=== PATIENT | female | born 1970 | race Caucasian/White ===

== ENCOUNTER → 2017-01-02 | Outpatient (CLI) | payer BC ==
--- OUTSIDE RECORDS SUMMARY | 2017-01-02 09:30 | XMS REPORT | Continuity of Care Document ---
Author Author [facility] Organization [facility] Address Unknown Phone Unavailable Allergies Medications Problems Date Dx Coded Attending Type Code Diagnosis Diagnosed By 11/01/2014 FLOWER PACE MD Ot V76.12 11/19/2014 FLOWER PACE MD Ot V76.12 11/26/2015 Ot V76.12 11/26/2015 FLOWER PACE MD Ot V76.12 11/26/2015 FLOWER PACE MD Ot V76.12 12/30/2016 Ot V76.12 OTH SCREEN MAMMO-MALIGN NEOPLASM OF ROSENDA 12/30/2016 FLOWER PACE MD Ot V76.12 OTH SCREEN MAMMO-MALIGN NEOPLASM OF ROSENDA 12/30/2016 FLOWER PACE MD Ot V76.12 OTH SCREEN MAMMO-MALIGN NEOPLASM OF ROSENDA 12/30/2016 FLOWER PACE MD Ot Z12.31 ENCNTR SCREEN MAMMOGRAM FOR MALIGNANT NE Procedures Results Encounters ACCT No. Visit Date/Time Discharge Status Pt. Type Provider Facility Loc./Unit Complaint [id number] 10/29/2014 10:08:00 2013 23:59:59 CLS Outpatient FLOWER PACE MD [facility] RAD SCREENING [id number] 10/22/2013 10:49:00 2012 23:59:59 CLS Outpatient FLOWER PACE MD [facility] RAD SCREENING [id number] 11/26/2015 10:04:00 ACT Outpatient FLOWER PACE MD [facility] RAD SCREENING [id number] 10/18/2012 14:25:00 Document Registration
--- NOTE | 2017-01-02 21:26 | Diagnostic Imaging Report ---
INDICATION: Screening. The current study was also evaluated with a Computer Aided Detection (CAD) system. Comparison made with prior examination of 11/26/2015, 10/29/2014, and 10/22/2013. FINDINGS: There is a moderate amount of residual fibroglandular tissue bilaterally. There is no dominant mass, spiculated lesion, or suspicious calcification identified. The skin, nipples, and axillae are unremarkable. IMPRESSION: Negative. ACR BI-RADS Category 1: Negative. Result letter will be mailed to the patient. Note: At least 10% of breast cancer is not imaged by mammography. Dictated by: Dictated on workstation # [id number]
== END ==
LOC: RAD 09:27
PROVIDERS: ATTEND Obstetrics & Gynecology
DX: Z12.31 Encounter for screening mammogram for malignant neoplasm of breast (principal)
CPT/HCPCS: 77067

== ENCOUNTER 2017-09-15 05:37 | Outpatient (CLI) | payer BC ==
[~2017-09-15] VITALS: Ht 172.7 cm; Wt 77.1 kg
== END 2017-09-15 11:24 ==
LOC: PREOP 05:37
PROVIDERS: ATTEND Internal Medicine
DX: Z01.818 Encounter for other preprocedural examination (principal); Z12.11 Encounter for screening for malignant neoplasm of colon; Z80.0 Family history of malignant neoplasm of digestive organs

== ENCOUNTER 2017-09-22 07:46 | Day surgery (SDC) | payer BC ==
--- NOTE | 2017-09-04 06:54 | HISTORY AND PHYSICAL ---
DATE OF SERVICE: DATE OF SERVICE: September 22, 2017 HISTORY OF PRESENT ILLNESS: The patient is a 47-year-old white female referred by Dr. Davis for her first screening colonoscopy. She is deemed to be of higher than average risk as she reports a maternal grandfather diagnosed with colon cancer in the 60s. She reports that she feels well and has had no bowel habit change. Denies melena or bright red blood per rectum. She denies abdominal pain. She does report nausea with general anesthetics. She has had 2 eye surgeries requiring general anesthetic followed by short episodes of nausea. Otherwise, she has no problems with nausea and denies heartburn, indigestion or dysphagia. PAST SURGICAL HISTORY: Pertinent only for 2 eye surgeries done as an outpatient. PAST MEDICAL HISTORY: She gets Depo-Provera injections for heavy painful uterine bleeding. They had resulted in amenorrhea and she has been much more comfortable. She reports no other medical problems. SOCIAL HISTORY: She is employed in the [employer] in [place] as I recall. She has no past smoking history with occasional social alcohol intake that is averaging several times per month. PHYSICAL EXAMINATION: GENERAL: Reveals a well appearing white female in no acute distress. HEENT: Oral cavity reveals a Mallampati class 2 configuration. Pharynx is clear. NECK: Reveals no JVD, adenopathy or bruits. CHEST: Clear. CARDIOVASCULAR: Reveals a regular rate and rhythm without murmur, S3 or S4. EXTREMITIES: Reveal no cyanosis, clubbing or edema. ABDOMEN: Reveals positive bowel sounds in all four quadrants. No mass, organomegaly or tenderness was noted. No bruits are appreciated. ASSESSMENT: The patient was set up for her first screening colonoscopy on 09/22/2017. Prep instructions of the Suprep Kit were given and questions were answered. In her evaluation in the office and review of her electronic medical record a little over 40 minutes, care time was spent by myself and another 15 minutes of office staff time going over specific prep instructions and scheduling colonoscopy. I thank you for the referral of this pleasant lady. Job ID: [id number] DocumentID: [id number] Dictated Date: 08/31/2017 17:17:36 Faith Doctor Date: 08/31/2017 18:00:59 Dictated By: MARISABEL HUSTON MD [facility]
[~2017-09-22] VITALS: Ht 172.7 cm; Wt 77.1 kg
--- OUTSIDE RECORDS SUMMARY | 2017-09-22 07:51 | XMS REPORT ---
Author Author Dottie Sanchez [facility] Address [address] [place], [place] [id number] Care Team Providers Care Quality Control Director Name Role Phone Dottie Sanchez PCP Unavailable Andrésscottmarce Fabiana PreferredProvider [phone] Allergies and Adverse Reactions Name Reaction Notes NO KNOWN DRUG ALLERGIES Plan of Treatment Planned Activity Comments Planned Date Planned Time Plan/Goal IM Injection 03/08/2016 12:00 AM IM Injection 06/06/2016 12:00 AM IM Injection 08/31/2016 12:00 AM Injection, Subcutaneous/IM 02/24/2017 12:00 AM Medications Active Name Start Date Estimated Completion Date SIG Comments Depo-Provera 150 mg/mL intramuscular suspension 01/04/2013 inject 1 milliliter (150 mg) by intramuscular route every 3 months for at least 6 months Name Start Date Expiration Date SIG Comments phentermine 37.5 mg oral tablet 01/04/2013 02/03/2013 take 1 tablet (37.5 mg) by oral route once daily before breakfast for 30 days phentermine 37.5 mg oral tablet 03/07/2016 04/06/2016 take 1 tablet (37.5 mg) by oral route once daily before breakfast for 30 days Discontinued Name Start Date Discontinued Date SIG Comments Sprintec (28) 0.25-35 mg-mcg oral tablet 01/04/2013 take 1 tablet by oral route once daily phentermine 37.5 mg oral tablet 01/14/2016 03/07/2016 take 1 tablet (37.5 mg) by oral route once daily before breakfast for 30 days Problem List Not available. Vital Signs Date Time BP-Sys(mm[Hg] BP-Bri(mm[Hg]) HR(bpm) RR(rpm) Temp WT HT HC BMI BSA BMI Percentile O2 Sat(%) 03/07/2016 1:55:00 PM 142 mmHg 90 mmHg 90 bpm 16 rpm 98.9 F 177.5 lbs 68 in 26.99 kg/m2 1.97 m2 98 % 01/14/2016 1:33:00 PM 126 mmHg 74 mmHg 68 bpm 18 rpm 97.5 F 179 lbs 68 in 27.2166 kg/m 1.9737 m 100 % 12/18/2015 8:27:00 AM 136 mmHg 74 mmHg 72 bpm 18 rpm 97.8 F 186.25 lbs 68 in 28.32 kg/m2 2.01 m2 100 % 01/04/2013 8:22:00 AM 126 mmHg 64 mmHg 64 bpm 18 rpm 98.9 F 168.125 lbs 68 in 25.5631 kg/m 1.9128 m 12/04/2012 8:17:00 AM 126 mmHg 64 mmHg 64 bpm 18 rpm 98.7 F 173 lbs 68 in 26.30 kg/m2 1.94 m2 02/14/2012 11:46:00 AM 132 mmHg 64 mmHg 66 bpm 18 rpm 98.6 F 170.125 lbs 01/13/2012 11:06:00 AM 128 mmHg 64 mmHg 68 bpm 18 rpm 98.7 F 179 lbs 68 in 27.22 kg/m2 1.97 m2 12/15/2011 2:21:00 PM 122 mmHg 64 mmHg 68 bpm 18 rpm 98.4 F 187.5 lbs 68.5 in 28.0943 kg/m 2.0274 m Social History Name Description Comments Exercises regularly Alcohol Use - Occasional Tobacco Never smoker Grown Children 2 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 with spouse 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 History of Procedures Date Ordered Description Order Status 10/02/2015 12:00 AM Depo Provera Injection, 150 mg Reviewed 12/18/2015 12:00 AM Depo Provera Injection, 150 mg Reviewed 12/18/2015 12:00 AM THER/PROPH/DIAG INJ SC/IM Reviewed 06/06/2016 12:00 AM Depo Provera Injection, 150 mg Reviewed 11/30/2016 12:00 AM THER/PROPH/DIAG INJ SC/IM Reviewed 11/30/2016 12:00 AM Depo Provera Injection, 150 mg Reviewed 12/04/2012 12:00 AM URINE TEST Reviewed 12/04/2012 12:00 AM THER/PROPH/DIAG INJ SC/IM Reviewed 12/04/2012 12:00 AM Depo-Provera 150 mg Reviewed 02/22/2013 12:00 AM THER/PROPH/DIAG INJ SC/IM Reviewed 02/22/2013 12:00 AM Depo-Provera 150 mg Reviewed 05/24/2013 12:00 AM THER/PROPH/DIAG INJ SC/IM Reviewed 05/24/2013 12:00 AM Depo-Provera 150 mg Reviewed 08/19/2013 12:00 AM THER/PROPH/DIAG INJ SC/IM Reviewed 08/19/2013 12:00 AM Depo-Provera 150 mg Reviewed 11/22/2013 12:00 AM THER/PROPH/DIAG INJ SC/IM Reviewed 11/22/2013 12:00 AM Depo-Provera 150 mg Reviewed 11/22/2013 12:00 AM URINE TEST Reviewed 02/07/2014 12:00 AM THER/PROPH/DIAG INJ SC/IM Reviewed 02/07/2014 12:00 AM Depo Provera, 150 mg Reviewed 05/08/2014 12:00 AM THER/PROPH/DIAG INJ SC/IM Reviewed 05/08/2014 12:00 AM Depo Provera Injection, 150 mg Reviewed 07/28/2014 12:00 AM THER/PROPH/DIAG INJ SC/IM Reviewed 07/28/2014 12:00 AM Depo Provera Injection, 150 mg Reviewed 10/21/2014 12:00 AM THER/PROPH/DIAG INJ SC/IM Reviewed 01/14/2015 12:00 AM THER/PROPH/DIAG INJ SC/IM Reviewed 01/14/2015 12:00 AM Depo Provera Injection, 150 mg Reviewed 04/14/2015 12:00 AM THER/PROPH/DIAG INJ SC/IM Reviewed 04/14/2015 12:00 AM Depo Provera Injection, 150 mg Reviewed 07/08/2015 12:00 AM Depo Provera Injection, 150 mg Reviewed Results Summary Not available. History Of Immunizations Not available. History of Past Illness Name Date of Onset Comments *No known medical problems Body Mass Index [BMI]; body mass index between 25-29, adult; body mass index 28.0-28.9, adult Dec 15 2011 2:23PM Exercise Counseling Dec 15 2011 2:23PM Dietary Counseling Dec 15 2011 2:23PM Body Mass Index [BMI]; body mass index between 25-29, adult; body mass index 27.0-27.9, adult Jan 13 2012 11:09AM Dietary Counseling Jan 13 2012 11:09AM Exercise Counseling Jan 13 2012 11:09AM Constipation Jan 13 2012 11:09AM Body Mass Index [BMI]; body mass index between 25-29, adult; body mass index 27.0-27.9, adult Feb 14 2012 11:48AM Dietary Counseling Feb 14 2012 11:48AM Exercise Counseling Feb 14 2012 11:48AM Dietary Counseling Dec 04 2012 8:20AM Exercise Counseling Dec 04 2012 8:20AM Contraceptive Counseling Dec 04 2012 8:20AM Overweight Jan 04 2013 8:25AM Contraceptive Counseling Jan 04 2013 8:25AM Contraceptive counseling (Depo-Provera) Feb 22 2013 11:56AM Contraceptive counseling (Depo-Provera) May 24 2013 10:28AM Contraceptive counseling (Depo-Provera) Oct 22 2013 4:27PM Contraceptive counseling (Depo-Provera) Nov 22 2013 11:54AM Contraceptive counseling (Depo-Provera) Feb 07 2014 12:53PM Contraceptive counseling (Depo-Provera) May 08 2014 2:30PM Contraceptive counseling (Depo-Provera) Jul 28 2014 1:20PM Contraceptive counseling (Depo-Provera) Oct 21 2014 3:51PM Contraception management Jan 14 2015 11:36AM Contraception management Apr 14 2015 11:44AM Contraceptive counseling (Depo-Provera) Jul 08 2015 12:04PM Contraceptive counseling (Depo-Provera) Oct 02 2015 11:26AM BMI 28.0-28.9,adult Dec 18 2015 8:31AM Encounter for surveillance of injectable contraceptive Dec 18 2015 8:31AM Encounter for surveillance of injectable contraceptive Jan 14 2016 1:35PM BMI 27.0-27.9,adult Jan 14 2016 1:35PM Contraceptive counseling (Depo-Provera) Mar 07 2016 2:55PM Overweight Mar 07 2016 1:59PM Encounter for surveillance of injectable contraceptive Mar 07 2016 1:59PM Contraceptive counseling (Depo-Provera) Jun 06 2016 11:34AM Contraceptive counseling (Depo-Provera) Aug 31 2016 1:50PM Encounter for surveillance of injectable contraceptive Nov 30 2016 11:35AM Encounter for surveillance of injectable contraceptive Feb 24 2017 12:09PM Payers Insurance Name Company Name Plan Name Plan Number Policy Number Policy Group Number Start Date BCBS [facility] [id number] Tuesday, 2014 [place] [employer] [place] [employer] [id number] Monday History of Encounters Visit Date Visit Type Provider 02/24/2017 Nurse visit Dottie Walker PSYCHOLOGY ASSISTANT 11/30/2016 Nurse visit Dottie Walker PSYCHOLOGY ASSISTANT 08/31/2016 Nurse visit Dottie Walker PSYCHOLOGY ASSISTANT 06/06/2016 Nurse visit Dottie Walker PSYCHOLOGY ASSISTANT 03/07/2016 Office visit Dottie Walker PSYCHOLOGY ASSISTANT 01/14/2016 Office visit Dottie Walker PSYCHOLOGY ASSISTANT 12/18/2015 Office visit Dottie Walker PSYCHOLOGY ASSISTANT 10/02/2015 Nurse visit Dottie Walker PSYCHOLOGY ASSISTANT 07/08/2015 Nurse visit Dottie Walker PSYCHOLOGY ASSISTANT 04/14/2015 Nurse visit Dottie Walker PSYCHOLOGY ASSISTANT 01/14/2015 Nurse visit Dottie Walker PSYCHOLOGY ASSISTANT 10/21/2014 Nurse visit Rhonda Parra PSYCHOLOGY ASSISTANT 07/28/2014 Nurse visit Dottie Sanchez PSYCHOLOGY ASSISTANT 05/08/2014 Nurse visit Alena Sanchez TERMITE CONTROL TECHNICIAN 02/07/2014 Nurse visit Dottie Daniel PSYCHOLOGY ASSISTANT 11/22/2013 Nurse visit Dottie Walker PSYCHOLOGY ASSISTANT 08/19/2013 Nurse visit Dottie Walker PSYCHOLOGY ASSISTANT 05/24/2013 Nurse visit Dottie Walker PSYCHOLOGY ASSISTANT 02/22/2013 Nurse visit Dottie Walker PSYCHOLOGY ASSISTANT 01/04/2013 Office visit Dottie Walker PSYCHOLOGY ASSISTANT 12/04/2012 Office visit Dottie Walker PSYCHOLOGY ASSISTANT 02/14/2012 Office visit Dottie Walker PSYCHOLOGY ASSISTANT 01/13/2012 Office visit Dottie Walker PSYCHOLOGY ASSISTANT 12/15/2011 Office visit Dottie Sanchez PSYCHOLOGY ASSISTANT
--- OUTSIDE RECORDS SUMMARY | 2017-09-22 07:51 | XMS REPORT ---
Author Author Dottie Sanchez [facility] Address [address] [place], [place] [id number] Care Team Providers Care Ball Thread Machine Tender Name Role Phone Dottie Sanchez PCP Unavailable Allergies and Adverse Reactions Name Reaction Notes NO KNOWN DRUG ALLERGIES Plan of Treatment Not available. Medications Active Name Start Date Estimated Completion [...] 1 tablet by oral route once daily Problem List Not available. Vital Signs Date Time BP-Sys(mm[Hg] BP-Bri(mm[Hg]) HR(bpm) RR(rpm) Temp WT HT HC BMI BSA BMI Percentile O2 Sat(%) 01/04/2013 8:22:00 AM 126 mmHg 64 mmHg 64 bpm 18 rpm 98.9 F 168.125 lbs 68 in 25.56 kg/m2 1.91 m2 12/04/2012 8:17:00 AM 126 mmHg 64 mmHg 64 bpm 18 rpm 98.7 F 173 lbs 68 in 26.3043 kg/m 1.9403 m 02/14/2012 11:46:00 AM 132 mmHg 64 mmHg 66 bpm 18 rpm 98.6 F 170.125 lbs 01/13/2012 11:06:00 AM 128 mmHg 64 mmHg 68 bpm 18 rpm 98.7 F 179 lbs 68 in 27.2166 kg/m 1.9737 m 12/15/2011 2:21:00 PM 122 mmHg 64 mmHg 68 bpm 18 rpm 98.4 F 187.5 lbs 68.5 in 28.09 kg/m2 2.03 m2 Social History Name Description Comments Exercises regularly Alcohol Use - Occasional Tobacco Never smoker Grown Children 2 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
--- OUTSIDE RECORDS SUMMARY | 2017-09-22 07:53 | XMS REPORT ---
Author Author Dottie Sanchez [facility] Address [address] [place], [place] [id number] Care Team Providers Care Cattle Manager Name Role Phone Dottie Sanchez PCP Unavailable Andrésscottmarce Fabiana PreferredProvider [phone] Allergies and Adverse Reactions Name Reaction Notes [...] Number Policy Group Number Start Date BCBS [facility] [id number] Tuesday, 2014 [employer] [employer] [employer] [id number] Monday History of Encounters Visit Date Visit Type Provider 02/24/2017 Nurse visit Dottie Walker ARCHITECT NAVAL 11/30/2016 Nurse visit Dottie Walker ARCHITECT NAVAL 08/31/2016 Nurse visit Dottie Walker ARCHITECT NAVAL 06/06/2016 Nurse visit Dottie Walker ARCHITECT NAVAL 03/07/2016 Office visit Dottie Walker ARCHITECT NAVAL 01/14/2016 Office visit Dottie Walker ARCHITECT NAVAL 12/18/2015 Office visit Dottie Walker ARCHITECT NAVAL 10/02/2015 Nurse visit Dottie Walker ARCHITECT NAVAL 07/08/2015 Nurse visit Dottie Walker ARCHITECT NAVAL 04/14/2015 Nurse visit Dottie Walker ARCHITECT NAVAL 01/14/2015 Nurse visit Dottie Walker ARCHITECT NAVAL 10/21/2014 Nurse visit Rhonda Parra ARCHITECT NAVAL 07/28/2014 Nurse visit Dottie Sanchez ARCHITECT NAVAL 05/08/2014 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
--- OUTSIDE RECORDS SUMMARY | 2017-09-22 07:55 | XMS REPORT ---
Author Author Dottie Sanchez [facility] Address [address] [place], [place] [phone] Care Team Providers Care Dairy Clerk Name Role Phone Dottie Sanchez PCP Unavailable Valentina Hardinerine PreferredProvider [phone] Allergies and Adverse Reactions Name Reaction Notes NO KNOWN DRUG ALLERGIES Plan of Treatment Planned Activity Comments Planned Date Planned Time Plan/Goal IM Injection 08/31/2016 12:00 AM Injection, Subcutaneous/IM 02/24/2017 12:00 AM Injection, Subcutaneous/IM 05/18/2017 12:00 AM Injection, Subcutaneous/IM 08/15/2017 12:00 AM Medications Active Name Start Date Estimated Completion Date SIG Comments Depo-Provera 150 mg/mL intramuscular suspension 01/04/2013 inject 1 milliliter (150 mg) by intramuscular route every 3 months for at least 6 months cyclobenzaprine 10 mg oral tablet 07/10/2017 1/2 TO 1 TAB AT BEDTIME FOR MUSCLE SPASMS Name Start Date Expiration Date SIG Comments [...] HC BMI BSA BMI Percentile O2 Sat(%) 07/10/2017 10:02:00 AM 138 mmHg 84 mmHg 80 bpm 18 rpm 97.8 F 179.5 lbs 68 in 27.29 kg/m2 1.98 m2 100 % 03/07/2016 1:55:00 PM 142 mmHg 90 mmHg 90 bpm 16 rpm 98.9 F 177.5 lbs 68 in 26.9885 kg/m 1.9654 m 98 % 01/14/2016 1:33:00 PM 126 mmHg 74 mmHg 68 bpm 18 rpm 97.5 F 179 lbs 68 in 27.22 kg/m2 1.97 m2 100 % 12/18/2015 8:27:00 AM 136 mmHg 74 mmHg 72 bpm 18 rpm 97.8 F 186.25 lbs 68 in 28.3189 kg/m 2.0133 m 100 % 01/04/2013 8:22:00 AM 126 mmHg [...] Social History Name Description Comments Exercises regularly 3 to 4 times a week Alcohol Use - Occasional Tobacco Never smoker Grown Children 2 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 with spouse 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 History of Procedures Date Ordered Description Order Status 10/02/2015 12:00 AM Depo Provera Injection, 150 mg Reviewed 12/18/2015 12:00 AM Depo Provera Injection, 150 mg Reviewed 12/18/2015 12:00 AM THER/PROPH/DIAG INJ SC/IM Reviewed 03/07/2016 12:00 AM Depo Provera Injection, 150 mg Reviewed 03/08/2016 12:00 AM Depo Provera Injection, 150 mg Reviewed 03/08/2016 12:00 AM THER/PROPH/DIAG INJ SC/IM Reviewed 06/06/2016 12:00 AM Depo Provera Injection, 150 mg Reviewed 06/06/2016 12:00 AM THER/PROPH/DIAG INJ SC/IM Reviewed 11/30/2016 12:00 AM THER/PROPH/DIAG INJ SC/IM Reviewed 11/30/2016 12:00 AM Depo Provera Injection, 150 mg Reviewed 07/10/2017 12:00 AM X-RAY EXAM NECK SPINE 2-3 VW Reviewed 12/04/2012 12:00 AM URINE TEST Reviewed [...] 10/21/2014 12:00 AM THER/PROPH/DIAG INJ SC/IM Reviewed 10/21/2014 12:00 AM Depo Provera Injection, 150 mg Reviewed 01/14/2015 12:00 AM THER/PROPH/DIAG INJ SC/IM [...] of injectable contraceptive Feb 24 2017 12:09PM Encounter for surveillance of injectable contraceptive May 18 2017 4:20PM Neck pain on left side Jul 10 2017 10:04AM Radiculopathy of arm Jul 10 2017 10:04AM Muscle spasm Jul 10 2017 10:04AM Encounter for surveillance of injectable contraceptive Aug 15 2017 4:18PM Payers Insurance Name Company Name Plan Name Plan Number Policy Number Policy Group Number Start Date BCBS [facility] [id number] Tuesday, 2014 [place] [employer] [id number] Monday History of Encounters Visit Date Visit Type Provider 08/15/2017 Nurse visit Dottie Sanchez PAPER CUP HANDLE MACHINE OPERATOR 07/10/2017 Office visit Valentina Hardin PAPER CUP HANDLE MACHINE OPERATOR 05/18/2017 Nurse visit Dottie Sanchez PAPER CUP HANDLE MACHINE OPERATOR 02/24/2017 Nurse visit Dottie Sanchez PAPER CUP HANDLE MACHINE OPERATOR 11/30/2016 Nurse visit Dottie Sanchez PAPER CUP HANDLE MACHINE OPERATOR 08/31/2016 Nurse visit Dottie Sanchez PAPER CUP HANDLE MACHINE OPERATOR 06/06/2016 Nurse visit Dottie Sanchez PAPER CUP HANDLE MACHINE OPERATOR 03/07/2016 Office visit Dottie Sanchez PAPER CUP HANDLE MACHINE OPERATOR 01/14/2016 Office visit Dottie Sanchez PAPER CUP HANDLE MACHINE OPERATOR 12/18/2015 Office visit Dottie Sanchez PAPER CUP HANDLE MACHINE OPERATOR 10/02/2015 Nurse visit Dottie Sanchez PAPER CUP HANDLE MACHINE OPERATOR 07/08/2015 Nurse visit Dottie Sanchez PAPER CUP HANDLE MACHINE OPERATOR 04/14/2015 Nurse visit Dottie Sanchez PAPER CUP HANDLE MACHINE OPERATOR 01/14/2015 Nurse visit Dottie Sanchez PAPER CUP HANDLE MACHINE OPERATOR 10/21/2014 Nurse visit Rhonda Parra PAPER CUP HANDLE MACHINE OPERATOR 07/28/2014 Nurse visit Dottie Sanchez PAPER CUP HANDLE MACHINE OPERATOR 05/08/2014 Nurse visit Alena Sanchez LMFT 02/07/2014 Nurse visit Dottie Sanchez PAPER CUP HANDLE MACHINE OPERATOR 11/22/2013 Nurse visit Dottie Sanchez PAPER CUP HANDLE MACHINE OPERATOR 08/19/2013 Nurse visit Dottie Sanchez PAPER CUP HANDLE MACHINE OPERATOR 05/24/2013 Nurse visit Dottie Sanchez PAPER CUP HANDLE MACHINE OPERATOR 02/22/2013 Nurse visit Dottie Sanchez PAPER CUP HANDLE MACHINE OPERATOR 01/04/2013 Office visit Dottie Sanchez PAPER CUP HANDLE MACHINE OPERATOR 12/04/2012 Office visit Dottie Sanchez PAPER CUP HANDLE MACHINE OPERATOR 02/14/2012 Office visit Dottie Sanchez PAPER CUP HANDLE MACHINE OPERATOR 01/13/2012 Office visit Dottie Sanchez PAPER CUP HANDLE MACHINE OPERATOR 12/15/2011 Office visit Dottie Sanchez PAPER CUP HANDLE MACHINE OPERATOR
--- OUTSIDE RECORDS SUMMARY | 2017-09-22 07:55 | XMS REPORT ---
Author Author Dottie Sanchez [facility] Address [address] [place], [place] [id number] Care Team Providers Care Power Line Lineman Name Role Phone Dottie Sanchez PCP Unavailable Allergies and Adverse Reactions Name Reaction Notes NO KNOWN DRUG ALLERGIES Plan of Treatment Not available. Medications Active Name Start Date Estimated Completion Date SIG Comments Depo-Provera 150 mg/mL intramuscular suspension 01/04/2013 inject 1 milliliter (150 mg) by intramuscular route every 3 months for at least 6 months phentermine 37.5 mg oral tablet 03/07/2016 04/06/2016 take 1 tablet (37.5 mg) by oral route once daily before breakfast for 30 days Name Start Date Expiration Date SIG Comments [...] 12/18/2015 12:00 AM THER/PROPH/DIAG INJ SC/IM Reviewed 12/04/2012 12:00 AM URINE TEST Reviewed [...] Contraceptive counseling (Depo-Provera) Mar 07 2016 2:55PM Payers Insurance Name Company Name Plan Name Plan Number Policy Number Policy Group Number Start Date BCBS [employer] [place] [id number] Tuesday, 2014 [employer] [id number] Monday History of Encounters Visit Date Visit Type Provider 03/07/2016 Office visit Dottie Sanchez BROWN SOURER 01/14/2016 Office visit Dottie Sanchez BROWN SOURER 12/18/2015 Office visit Dottie Sanchez BROWN SOURER 10/02/2015 Nurse visit Dottie Sanchez BROWN SOURER 07/08/2015 Nurse visit Dottie Sanchez BROWN SOURER 04/14/2015 Nurse visit Dottie Sanchez BROWN SOURER 01/14/2015 Nurse visit Dottie Sanchez BROWN SOURER 10/21/2014 Nurse visit Rhonda Parra BROWN SOURER 07/28/2014 Nurse visit Dottie Sanchez BROWN SOURER 05/08/2014 Nurse visit Alena Sanchez LOCATOR SPECIALIST 02/07/2014 Nurse visit Dottie Sanchez BROWN SOURER 11/22/2013 Nurse visit Dottie Sanchez BROWN SOURER 08/19/2013 Nurse visit Dottie Sanchez BROWN SOURER 05/24/2013 Nurse visit Dottie Sanchez BROWN SOURER 02/22/2013 Nurse visit oDttie Sanchez BROWN SOURER 01/04/2013 Office visit Dottie Sanchez BROWN SOURER 12/04/2012 Office visit Dottie Sanchez APRN 02/14/2012 Office visit Dottie Sanchez APRN 01/13/2012 Office visit Dottie Sanchez APRN 12/15/2011 Office visit Dottie Sanchez APRN
--- OUTSIDE RECORDS SUMMARY | 2017-09-22 07:56 | XMS REPORT ---
Author Author Valentina Hardin [facility] Address [address] [place], [place] [id number] Care Team Providers Care Hot Car Charger Name Role Phone Valentina Hardin PCP [phone] Valentina Hardin PreferredProvider [phone] Allergies and Adverse Reactions Name Reaction Notes NO KNOWN DRUG ALLERGIES Plan of Treatment Planned Activity Comments Planned Date Planned Time Plan/Goal IM Injection 08/31/2016 12:00 AM Injection, Subcutaneous/IM 02/24/2017 12:00 AM Injection, Subcutaneous/IM 05/18/2017 12:00 AM XR cervical spine, 2-3 views 07/10/2017 12:00 AM Medications Active Name Start Date [...] 10:04AM Muscle spasm Jul 10 2017 10:04AM Payers Insurance Name Company Name Plan Name Plan Number Policy Number Policy Group Number Start Date BCBS Bcbs [facility] [id number] Tuesday, 2014 [employer] [id number] Monday History of Encounters Visit Date Visit Type Provider 07/10/2017 Office visit Valentina Hardin SALES COACH 05/18/2017 Nurse visit Dottie Sanchez SALES COACH 02/24/2017 Nurse visit Dottie Sanchez SALES COACH 11/30/2016 Nurse visit Dottie Sanchez SALES COACH 08/31/2016 Nurse visit Dottie Sanchez SALES COACH 06/06/2016 Nurse visit Dottie Sanchez SALES COACH 03/07/2016 Office visit Dottie Sanchez SALES COACH 01/14/2016 Office visit Dottie Sanchez SALES COACH 12/18/2015 Office visit Dottie Sanchez SALES COACH 10/02/2015 Nurse visit Dottie Sanchez SALES COACH 07/08/2015 Nurse visit Dottie Sanchez SALES COACH 04/14/2015 Nurse visit Dottie Sanchez SALES COACH 01/14/2015 Nurse visit Dottie Sanchez SALES COACH 10/21/2014 Nurse visit Rhonda Parra SALES COACH 07/28/2014 Nurse visit Dottie Sanchez SALES COACH 05/08/2014 Nurse visit Alena Sanchez DIRECTOR FRAUD 02/07/2014 Nurse visit Dottie Sanchez SALES COACH 11/22/2013 Nurse visit Dottie Sanchez SALES COACH 08/19/2013 Nurse visit Dottie Sanchez SALES COACH 05/24/2013 Nurse visit Dottie Sanchez SALES COACH 02/22/2013 Nurse visit Dottie Sanchez SALES COACH 01/04/2013 Office visit Dottie Sanchez APRN 12/04/2012 Office visit Dottie Sanchez APRN 02/14/2012 Office visit Dottie Sanchez APRN 01/13/2012 Office visit Dottie Sanchez APRN 12/15/2011 Office visit Dottie Sanchez APRN
--- OUTSIDE RECORDS SUMMARY | 2017-09-22 08:00 | XMS REPORT ---
Author Author Dottie Sanchez [facility] Address [address] [place], [place] [phone] Care Team Providers Care Curriculum Designer Name Role Phone Dottie Sanchez PCP Unavailable Allergies and Adverse Reactions Name Reaction Notes NO KNOWN DRUG ALLERGIES Plan of Treatment Not available. Medications Active Name Start Date Estimated Completion Date SIG Comments Depo-Provera Intramuscular Suspension 150 mg/mL 01/04/2013 inject 1 milliliter (150 mg) by intramuscular route every 3 months for at least 6 months Name Start Date Expiration Date SIG Comments phentermine Oral tablet 37.5 mg 01/04/2013 02/03/2013 take 1 tablet (37.5 mg) by oral route once daily before breakfast for 30 days Discontinued Name Start Date Discontinued Date SIG Comments Sprintec (28) Oral tablet 0.25-35 mg-mcg 01/04/2013 take 1 tablet by oral route [...] 12/04/2012 12:00 AM THER/PROPH/DIAG INJ SC/IM Reviewed 02/22/2013 12:00 AM THER/PROPH/DIAG INJ SC/IM Reviewed 05/24/2013 12:00 AM THER/PROPH/DIAG INJ SC/IM Reviewed 08/19/2013 12:00 AM THER/PROPH/DIAG INJ SC/IM Reviewed 11/22/2013 12:00 AM THER/PROPH/DIAG INJ SC/IM Reviewed 11/22/2013 12:00 AM URINE TEST Reviewed 02/07/2014 12:00 AM THER/PROPH/DIAG INJ SC/IM Reviewed 05/08/2014 12:00 AM THER/PROPH/DIAG INJ SC/IM Reviewed 07/28/2014 12:00 AM THER/PROPH/DIAG INJ SC/IM Reviewed 10/21/2014 12:00 AM THER/PROPH/DIAG INJ SC/IM Reviewed 01/14/2015 12:00 AM THER/PROPH/DIAG INJ SC/IM Reviewed 04/14/2015 12:00 AM THER/PROPH/DIAG INJ SC/IM Reviewed Results Summary Not available. History Of [...] 11:36AM Contraception management Apr 14 2015 11:44AM Payers Insurance Name Company Name Plan Name Plan Number Policy Number Policy Group Number Start Date Bcbs Bcbs [facility] [id number] Tuesday, 2014 [employer] [id number] Monday History of Encounters Visit Date Visit Type Provider 04/14/2015 Nurse visit Dottie Sanchez MANAGER CUSTOMS 01/14/2015 Nurse visit Dottie Sanchez MANAGER CUSTOMS 10/21/2014 Nurse visit Rhonda Parra MANAGER CUSTOMS 07/28/2014 Nurse visit Dottie Sanchez MANAGER CUSTOMS 05/08/2014 Nurse visit Alena Sanchez WINDOWS SYSTEMS ENGINEER 02/07/2014 Nurse visit Dottie Sanchez MANAGER CUSTOMS 11/22/2013 Nurse visit Dottie Sanchez MANAGER CUSTOMS 08/19/2013 Nurse visit Dottie Sanchez MANAGER CUSTOMS 05/24/2013 Nurse visit Dottie Sanchez MANAGER CUSTOMS 02/22/2013 Nurse visit Dottie Sanchez MANAGER CUSTOMS 01/04/2013 Office visit Dottie Sanchez MANAGER CUSTOMS 12/04/2012 Office visit Dottie Sanchez MANAGER CUSTOMS 02/14/2012 Office visit Dottie Sanchez MANAGER CUSTOMS 01/13/2012 Office visit Dottie Sanchez MANAGER CUSTOMS 12/15/2011 Office visit Dottie Sanchez MANAGER CUSTOMS
[2017-09-22 08:05] VITALS: BP 145/98
--- OUTSIDE RECORDS SUMMARY | 2017-09-22 08:05 | XMS REPORT ---
Author Author Dottie Sanchez [facility] Address [address] [place], [place] [phone] Care Team Providers Care Edger Feeder Name Role Phone Dottie Sanchez PCP Unavailable [...] Contraceptive counseling (Depo-Provera) Oct 02 2015 11:26AM Payers Insurance Name Company Name Plan Name Plan Number Policy Number Policy Group Number [id number] [facility], 2014 [facility] [place] [employer] [id number] Monday History of Encounters Visit Date Visit Type Provider 10/02/2015 Nurse visit Dottie Sanchez APPLIANCE REPAIR TECHNICIAN 07/08/2015 Nurse visit Dottie Sanchez APPLIANCE REPAIR TECHNICIAN 04/14/2015 Nurse visit Dottie Sanchez APPLIANCE REPAIR TECHNICIAN 01/14/2015 Nurse visit Dottie Sanchez APPLIANCE REPAIR TECHNICIAN 10/21/2014 Nurse visit Rhonda Parra APPLIANCE REPAIR TECHNICIAN 07/28/2014 Nurse visit Dottie Sanchez APPLIANCE REPAIR TECHNICIAN 05/08/2014 Nurse visit Alena Sanchez WOOL HANKER 02/07/2014 Nurse visit Dottie Sanchez APPLIANCE REPAIR TECHNICIAN 11/22/2013 Nurse visit Dottie Sanchez APPLIANCE REPAIR TECHNICIAN 08/19/2013 Nurse visit Dottie Sanchez APPLIANCE REPAIR TECHNICIAN 05/24/2013 Nurse visit Dottie Sanchez APPLIANCE REPAIR TECHNICIAN 02/22/2013 Nurse visit Dottie Sanchez APPLIANCE REPAIR TECHNICIAN 01/04/2013 Office visit Dottie Sanchez APPLIANCE REPAIR TECHNICIAN 12/04/2012 Office visit Dottie Sanchez APPLIANCE REPAIR TECHNICIAN 02/14/2012 Office visit Dottie Sanchez APPLIANCE REPAIR TECHNICIAN 01/13/2012 Office visit Dottie Sanchez APPLIANCE REPAIR TECHNICIAN 12/15/2011 Office visit Dottie Sanchez APPLIANCE REPAIR TECHNICIAN
--- OUTSIDE RECORDS SUMMARY | 2017-09-22 08:05 | XMS REPORT ---
Author Dottie Reid [facility] Address [address] [place], [place] [phone] Care Team Providers Care Video Recorder Mechanic Name Role Phone Dottie Sanchez PCP Unavailable Allergies and Adverse Reactions Name Reaction Notes NO KNOWN DRUG ALLERGIES Plan of Treatment Planned Activity Comments Planned Date Planned Time Plan/Goal THER/PROPH/DIAG INJ SC/IM 03/08/2016 12:00 AM THER/PROPH/DIAG INJ SC/IM 06/06/2016 12:00 AM Medications Active Name Start Date [...] Contraceptive counseling (Depo-Provera) Jun 06 2016 11:34AM Payers Insurance Name Company Name Plan Name Plan Number Policy Number Policy Group Number Start Date BCBS Bcbs [facility] [id number] Tuesday, 2014 [employer] [facility] [employer] [id number] Monday History of Encounters Visit Date Visit Type Provider 06/06/2016 Nurse visit Dottie Sanchez RESEARCH HYDROLOGIST 03/07/2016 Office visit Dottie Sanchez RESEARCH HYDROLOGIST 01/14/2016 Office visit Dottie Sanchez RESEARCH HYDROLOGIST 12/18/2015 Office visit Dottie Sanchez RESEARCH HYDROLOGIST 10/02/2015 Nurse visit Dottie Sanchez RESEARCH HYDROLOGIST 07/08/2015 Nurse visit Dottie Sanchez RESEARCH HYDROLOGIST 04/14/2015 Nurse visit Dottie Sanchez RESEARCH HYDROLOGIST 01/14/2015 Nurse visit Dottie Sanchez RESEARCH HYDROLOGIST 10/21/2014 Nurse visit Rhonda Parra RESEARCH HYDROLOGIST 07/28/2014 Nurse visit Dottie Sanchez RESEARCH HYDROLOGIST 05/08/2014 Nurse visit Alena Sanchez CRYSTAL ATTACHER 02/07/2014 Nurse visit Dottie Sanchez RESEARCH HYDROLOGIST 11/22/2013 Nurse visit Dottie Sanchez RESEARCH HYDROLOGIST 08/19/2013 Nurse visit Dottie Sanchez RESEARCH HYDROLOGIST 05/24/2013 Nurse visit Dottie Sanchez RESEARCH HYDROLOGIST 02/22/2013 Nurse visit Dottie Sanchez RESEARCH HYDROLOGIST 01/04/2013 Office visit Dottie Sanchez RESEARCH HYDROLOGIST 12/04/2012 Office visit Dottie Sanchez RESEARCH HYDROLOGIST 02/14/2012 Office visit Dottie Sanchez RESEARCH HYDROLOGIST 01/13/2012 Office visit Dottie Sanchez RESEARCH HYDROLOGIST 12/15/2011 Office visit Dottie Sanchez RESEARCH HYDROLOGIST
--- OUTSIDE RECORDS SUMMARY | 2017-09-22 08:05 | XMS REPORT ---
Author Author Dotite Sanchez [facility] Address [address] [place], [place] [id number] Care Team Providers Care Enginehouse Brakeman Name Role Phone Dottie Sanchez PCP Unavailable Andrésscottmarce Fabiana PreferredProvider [phone] Allergies and Adverse Reactions Name Reaction Notes NO KNOWN DRUG ALLERGIES Plan of Treatment Planned Activity Comments Planned Date Planned Time Plan/Goal IM Injection 08/31/2016 12:00 AM Injection, Subcutaneous/IM 02/24/2017 12:00 AM Injection, Subcutaneous/IM 05/18/2017 12:00 AM Medications Active Name Start Date [...] 25-29, adult; body mass index 28.0-28.9, adult Feb 2 2012 2:23PM Exercise Counseling Dec 15 2011 2:23PM [...] of injectable contraceptive May 18 2017 4:20PM Payers Insurance Name Company Name Plan Name Plan Number Policy Number Policy Group Number Start Date BCBS [employer] [facility] [place] [id number] Tuesday, 2014 [employer] [id number] Monday History of Encounters Visit Date Visit Type Provider 05/18/2017 Nurse visit Dottie Sanchez LOAD BUILDER 02/24/2017 Nurse visit Dottie Sanchez LOAD BUILDER 11/30/2016 Nurse visit Dottie Sanchez LOAD BUILDER 08/31/2016 Nurse visit Dottie Sanchez LOAD BUILDER 06/06/2016 Nurse visit Dottie Sanchez LOAD BUILDER 03/07/2016 Office visit Dottie Sanchez LOAD BUILDER 01/14/2016 Office visit Dottie Sanchez LOAD BUILDER 12/18/2015 Office visit Dottie Sanchez LOAD BUILDER 10/02/2015 Nurse visit Dottie Sanchez LOAD BUILDER 07/08/2015 Nurse visit Dottie Sanchez LOAD BUILDER 04/14/2015 Nurse visit Dottie Sanchez LOAD BUILDER 01/14/2015 Nurse visit Dottie Sanchez LOAD BUILDER 10/21/2014 Nurse visit Rhonda Parra LOAD BUILDER 07/28/2014 Nurse visit Dottie Sanchez LOAD BUILDER 05/08/2014 Nurse visit Alena Sanchez PLAN EXAMINER 02/07/2014 Nurse visit Dottie Sanchez LOAD BUILDER 11/22/2013 Nurse visit Dottie Sanchez LOAD BUILDER 08/19/2013 Nurse visit Dottie Sanchez LOAD BUILDER 05/24/2013 Nurse visit Dottie Sanchez LOAD BUILDER 02/22/2013 Nurse visit Dottie Sanchez LOAD BUILDER 01/04/2013 Office visit Dottie Sanchez LOAD BUILDER 12/04/2012 Office visit Dottie Sanchez LOAD BUILDER 02/14/2012 Office visit Dottie Sanchez LOAD BUILDER 01/13/2012 Office visit Dottie Sanchez LOAD BUILDER 12/15/2011 Office visit Dottie Sanchez LOAD BUILDER
--- OUTSIDE RECORDS SUMMARY | 2017-09-22 08:06 | XMS REPORT ---
Author Dottie Reid [facility] Address [address] [place], [place] [address] Care Team Providers Care Equipment Service Technician Name Role Phone Dottie Sanchez PCP Unavailable Allergies and Adverse Reactions Name Reaction Notes NO KNOWN DRUG ALLERGIES Plan of Treatment Planned Activity Comments Planned Date Planned Time Plan/Goal THER/PROPH/DIAG INJ SC/IM 03/08/2016 12:00 AM THER/PROPH/DIAG INJ SC/IM 06/06/2016 12:00 AM THER/PROPH/DIAG INJ SC/IM 08/31/2016 12:00 AM Medications Active Name Start Date [...] Contraceptive counseling (Depo-Provera) Aug 31 2016 1:50PM Payers Insurance Name Company Name Plan Name Plan Number Policy Number Policy Group Number Start Date BCBS [facility] [id number] Tuesday, 2014 [facility] [employer] [id number] Monday History of Encounters Visit Date Visit Type Provider 08/31/2016 Nurse visit Dottie Sanchez CONTENT PUBLISHER 06/06/2016 Nurse visit Dottie Sanchez CONTENT PUBLISHER 03/07/2016 Office visit Dottie Sanchez CONTENT PUBLISHER 01/14/2016 Office visit Dottie Sanchez CONTENT PUBLISHER 12/18/2015 Office visit Dottie Sanchez CONTENT PUBLISHER 10/02/2015 Nurse visit Dottie Sanchez CONTENT PUBLISHER 07/08/2015 Nurse visit Dottie Walker CONTENT PUBLISHER 04/14/2015 Nurse visit Dottie Sanchez CONTENT PUBLISHER 01/14/2015 Nurse visit Dottie Sanchez CONTENT PUBLISHER 10/21/2014 Nurse visit Rhonda Parra CONTENT PUBLISHER 07/28/2014 Nurse visit Dottie Sanchez CONTENT PUBLISHER 05/08/2014 Nurse visit Alena Sanchez AIR INTERCEPT CONTROLLER SUPERVISOR 02/07/2014 Nurse visit Dottie Sanchez CONTENT PUBLISHER 11/22/2013 Nurse visit Dottie Sanchez CONTENT PUBLISHER 08/19/2013 Nurse visit Dottie Sanchez CONTENT PUBLISHER 05/24/2013 Nurse visit Dottie Sanchez CONTENT PUBLISHER 02/22/2013 Nurse visit Dottie Sanchez CONTENT PUBLISHER 01/04/2013 Office visit Dottie Sanchez CONTENT PUBLISHER 12/04/2012 Office visit Dottie Sanchez CONTENT PUBLISHER 02/14/2012 Office visit Dottie Sanchez CONTENT PUBLISHER 01/13/2012 Office visit Dottie Sanchez CONTENT PUBLISHER 12/15/2011 Office visit Dottie Sanchez CONTENT PUBLISHER
--- OUTSIDE RECORDS SUMMARY | 2017-09-22 08:06 | XMS REPORT ---
Author Author Dottie Sanchez [facility] Address [address] [place], [place] [phone] Care Team Providers Care Bulkhead Carpenter Name Role Phone Dottie Sanchez PCP Unavailable Andrésscottmarce Fabiana PreferredProvider [phone] Allergies and Adverse Reactions Name Reaction Notes [...] Group Number Start Date BCBS [employer] [place] [id number] Tuesday, 2014 [employer] [id number] Monday History of Encounters Visit Date Visit Type Provider 05/18/2017 Nurse visit Dottie Sanchez CHIP MIXER 02/24/2017 Nurse visit Dottie Sanchez CHIP MIXER 11/30/2016 Nurse visit Dottie Sanchez CHIP MIXER 08/31/2016 Nurse visit Dottie Sanchez CHIP MIXER 06/06/2016 Nurse visit Dottie Sanchez CHIP MIXER 03/07/2016 Office visit Dottie Sanchez CHIP MIXER 01/14/2016 Office visit Dottie Sanchez CHIP MIXER 12/18/2015 Office visit Dottie Sanchez CHIP MIXER 10/02/2015 Nurse visit Dottie Sanchez CHIP MIXER 07/08/2015 Nurse visit Dottie Sanchez CHIP MIXER 04/14/2015 Nurse visit Dottie Sanchez CHIP MIXER 01/14/2015 Nurse visit Dottie Sanchez CHIP MIXER 10/21/2014 Nurse visit Rhonda Parra CHIP MIXER 07/28/2014 Nurse visit Dottie Sanchez CHIP MIXER 05/08/2014 Nurse visit Alena Sanchez E/M ENGINEER 02/07/2014 Nurse visit Dottie Sanchez CHIP MIXER 11/22/2013 Nurse visit Dottie Sanchez CHIP MIXER 08/19/2013 Nurse visit Dottie Sanchez CHIP MIXER 05/24/2013 Nurse visit Dottie Sanchez CHIP MIXER 02/22/2013 Nurse visit Dottie Sanchez CHIP MIXER 01/04/2013 Office visit Dottie Sanchez CHIP MIXER 12/04/2012 Office visit Dottie Sanchez CHIP MIXER 02/14/2012 Office visit Dottie Sanchez CHIP MIXER 01/13/2012 Office visit Dottie Sanchez CHIP MIXER 12/15/2011 Office visit Dottie Sanchez CHIP MIXER
--- OUTSIDE RECORDS SUMMARY | 2017-09-22 08:07 | XMS REPORT ---
Author Dottie Reid [facility] Address [address] [place], [place] [id number] Care Team Providers Care Chief Recordist Name Role Phone Dottie Sanchez PCP Unavailable Allergies and Adverse Reactions Name Reaction Notes NO KNOWN DRUG ALLERGIES Plan of Treatment Planned Activity Comments Planned Date Planned Time Plan/Goal THER/PROPH/DIAG INJ SC/IM 03/08/2016 12:00 AM Medications Active Name Start Date [...] of injectable contraceptive Mar 07 2016 1:59PM Payers Insurance Name Company Name Plan Name Plan Number Policy Number Policy Group Number Start Date BCBS [facility] [id number] Tuesday, 2014 [facility] [id number] Monday History of Encounters Visit Date Visit Type Provider 03/07/2016 Office visit Dottie Sanchez MECHANICAL SHOVEL OPERATOR 01/14/2016 Office visit Dottie Sanchez MECHANICAL SHOVEL OPERATOR 12/18/2015 Office visit Dottie Sanchez MECHANICAL SHOVEL OPERATOR 10/02/2015 Nurse visit Dottie Sanchez MECHANICAL SHOVEL OPERATOR 07/08/2015 Nurse visit Dottie Sanchez MECHANICAL SHOVEL OPERATOR 04/14/2015 Nurse visit Dottie Sanchez MECHANICAL SHOVEL OPERATOR 01/14/2015 Nurse visit Dottie Sanchez MECHANICAL SHOVEL OPERATOR 10/21/2014 Nurse visit Rhonda Parra MECHANICAL SHOVEL OPERATOR 07/28/2014 Nurse visit Dottie Sanchez MECHANICAL SHOVEL OPERATOR 05/08/2014 Nurse visit Alena Sanchez FINISHER SCREWDOWN 02/07/2014 Nurse visit Dottie Sanchez MECHANICAL SHOVEL OPERATOR 11/22/2013 Nurse visit Dottie Sanchez MECHANICAL SHOVEL OPERATOR 08/19/2013 Nurse visit Dottie Sanchez MECHANICAL SHOVEL OPERATOR 05/24/2013 Nurse visit Dottie Sanchez MECHANICAL SHOVEL OPERATOR 02/22/2013 Nurse visit Dottie Sanchez MECHANICAL SHOVEL OPERATOR 01/04/2013 Office visit Dottie Sanchez MECHANICAL SHOVEL OPERATOR 12/04/2012 Office visit Dottie Sanchez MECHANICAL SHOVEL OPERATOR 02/14/2012 Office visit Dottie Sanchez MECHANICAL SHOVEL OPERATOR 01/13/2012 Office visit Dottie Sanchez MECHANICAL SHOVEL OPERATOR 12/15/2011 Office visit Dottie Sanchez MECHANICAL SHOVEL OPERATOR
--- OUTSIDE RECORDS SUMMARY | 2017-09-22 08:07 | XMS REPORT ---
Author Author Dottie Sanchez [facility] Address [address] [place], [place] [address] Care Team Providers Care Fresh Foods Technician Name Role Phone Dottie Sanchez PCP Unavailable Dottie Sanchez PreferredProvider Unavailable Allergies and Adverse Reactions Name Reaction Notes NO KNOWN DRUG ALLERGIES Plan of Treatment Planned Activity Comments Planned Date Planned Time Plan/Goal IM Injection 03/08/2016 12:00 AM IM Injection 06/06/2016 12:00 AM IM Injection 08/31/2016 12:00 AM Medications Active Name Start [...] of injectable contraceptive Nov 30 2016 11:35AM Payers Insurance Name Company Name Plan Name Plan Number Policy Number Policy Group Number Start Date BCBS [employer] [place] [id number] Tuesday, 2014 [employer] [id number] Monday History of Encounters Visit Date Visit Type Provider 11/30/2016 Nurse visit Dottie Sanchez ELECTRIC ORGAN ASSEMBLER 08/31/2016 Nurse visit Dottie Sanchez ELECTRIC ORGAN ASSEMBLER 06/06/2016 Nurse visit Dottie Walker ELECTRIC ORGAN ASSEMBLER 03/07/2016 Office visit Dottie Walker ELECTRIC ORGAN ASSEMBLER 01/14/2016 Office visit Dottie Walker ELECTRIC ORGAN ASSEMBLER 12/18/2015 Office visit Dottie Walker ELECTRIC ORGAN ASSEMBLER 10/02/2015 Nurse visit Dottie Walker ELECTRIC ORGAN ASSEMBLER 07/08/2015 Nurse visit Dottie Walker ELECTRIC ORGAN ASSEMBLER 04/14/2015 Nurse visit Dottie Walker ELECTRIC ORGAN ASSEMBLER 01/14/2015 Nurse visit Dottie Sanchez ELECTRIC ORGAN ASSEMBLER 10/21/2014 Nurse visit Rhonda Parra ELECTRIC ORGAN ASSEMBLER 07/28/2014 Nurse visit Dottie Sanchez ELECTRIC ORGAN ASSEMBLER 05/08/2014 Nurse visit Alena Sanchez SENIOR ANDROID SOFTWARE ENGINEER 02/07/2014 Nurse visit Dottie Walker ELECTRIC ORGAN ASSEMBLER 11/22/2013 Nurse visit Dottie Walker ELECTRIC ORGAN ASSEMBLER 08/19/2013 Nurse visit Dottie Sanchez ELECTRIC ORGAN ASSEMBLER 05/24/2013 Nurse visit Dottie Walker ELECTRIC ORGAN ASSEMBLER 02/22/2013 Nurse visit Dottie Sanchez ELECTRIC ORGAN ASSEMBLER 01/04/2013 Office visit Dottie Sanchez ELECTRIC ORGAN ASSEMBLER 12/04/2012 Office visit Dottie Sanchez ELECTRIC ORGAN ASSEMBLER 02/14/2012 Office visit Dottie Sanchez ELECTRIC ORGAN ASSEMBLER 01/13/2012 Office visit Dottie Sanchez ELECTRIC ORGAN ASSEMBLER 12/15/2011 Office visit Dottie Sanchez ELECTRIC ORGAN ASSEMBLER
[2017-09-22] MEDS ORDERED: 1/2 NS IV SOLUTION 1,000 ML IV ONE (08:08)
--- OUTSIDE RECORDS SUMMARY | 2017-09-22 08:08 | XMS REPORT ---
Author Author Dottie Sanchez [facility] Address [address] [place], [place] [id number] Care Team Providers Care Urban Forester Name Role Phone Dottie Sanchez PCP Unavailable Allergies and Adverse Reactions Name Reaction Notes NO KNOWN DRUG ALLERGIES Plan of Treatment Not available. Medications Active Name Start Date Estimated Completion Date SIG Comments Depo-Provera 150 mg/mL intramuscular suspension 01/04/2013 inject 1 milliliter (150 mg) by intramuscular route every 3 months for at least 6 months phentermine 37.5 mg oral tablet 01/14/2016 02/13/2016 take 1 tablet (37.5 mg) by oral [...] HC BMI BSA BMI Percentile O2 Sat(%) 01/14/2016 1:33:00 PM 126 mmHg 74 mmHg [...] 1:35PM BMI 27.0-27.9,adult Jan 14 2016 1:35PM Payers Insurance Name Company Name Plan Name Plan Number Policy Number Policy Group Number Start Date [employer] [place] [id number] Tuesday, 2014 [employer] [id number] Monday History of Encounters Visit Date Visit Type Provider 01/14/2016 Office visit Dottie Sanchez MALT HOUSE OPERATOR 12/18/2015 Office visit Dottie Sanchez MALT HOUSE OPERATOR 10/02/2015 Nurse visit Dottie Sanchez MALT HOUSE OPERATOR 07/08/2015 Nurse visit Dottie Sanchez MALT HOUSE OPERATOR 04/14/2015 Nurse visit Dottie Sanchez MALT HOUSE OPERATOR 01/14/2015 Nurse visit Dottie Sanchez MALT HOUSE OPERATOR 10/21/2014 Nurse visit Rhonda Parra MALT HOUSE OPERATOR 07/28/2014 Nurse visit Dottie Sanchez MALT HOUSE OPERATOR 05/08/2014 Nurse visit Alena Sanchez MOTOR BOSS 02/07/2014 Nurse visit Dottie Sanchez MALT HOUSE OPERATOR 11/22/2013 Nurse visit Dottie Sanchez MALT HOUSE OPERATOR 08/19/2013 Nurse visit Dottie Sanchez MALT HOUSE OPERATOR 05/24/2013 Nurse visit Dottie Sanchez MALT HOUSE OPERATOR 02/22/2013 Nurse visit Dottie Sanchez MALT HOUSE OPERATOR 01/04/2013 Office visit Dottie Sanchez MALT HOUSE OPERATOR 12/04/2012 Office visit Dottie Sanchez MALT HOUSE OPERATOR 02/14/2012 Office visit Dottie Sanchez MALT HOUSE OPERATOR 01/13/2012 Office visit Dottie Sanchez MALT HOUSE OPERATOR 12/15/2011 Office visit Dottie Sanchez MALT HOUSE OPERATOR
--- OUTSIDE RECORDS SUMMARY | 2017-09-22 08:10 | XMS REPORT ---
Author Author Dottie Sanchez [facility] Address [address] [place], [place] [id number] Care Team Providers Care Instrument Repair Specialist Name Role Phone Dottie Sanchez PCP Unavailable Valentina Hardinerine PreferredProvider [phone] Allergies and Adverse Reactions Name Reaction Notes [...] Policy Group Number Start Date [employer] [facility] [id number] Tuesday, 2014 [employer] [id number] Monday History of Encounters Visit Date Visit Type Provider 08/15/2017 Nurse visit Dottie Sanchez VARNISHING MACHINE OPERATOR 07/10/2017 Office visit Valentina Hardin VARNISHING MACHINE OPERATOR 05/18/2017 Nurse visit Dottie Sanchez VARNISHING MACHINE OPERATOR 02/24/2017 Nurse visit Dottie Sanchez VARNISHING MACHINE OPERATOR 11/30/2016 Nurse visit Dottie Sanchez VARNISHING MACHINE OPERATOR 08/31/2016 Nurse visit Dottie Sanchez VARNISHING MACHINE OPERATOR 06/06/2016 Nurse visit Dottie Sanchez VARNISHING MACHINE OPERATOR 03/07/2016 Office visit Dottie Sanchez VARNISHING MACHINE OPERATOR 01/14/2016 Office visit Dottie Sanchez VARNISHING MACHINE OPERATOR 12/18/2015 Office visit Dottie Sanchez VARNISHING MACHINE OPERATOR 10/02/2015 Nurse visit Dottie Sanchez VARNISHING MACHINE OPERATOR 07/08/2015 Nurse visit Dottie Sanchez VARNISHING MACHINE OPERATOR 04/14/2015 Nurse visit Dottie Sanchez VARNISHING MACHINE OPERATOR 01/14/2015 Nurse visit Dottie Sanchez VARNISHING MACHINE OPERATOR 10/21/2014 Nurse visit Rhonda Parra VARNISHING MACHINE OPERATOR 07/28/2014 Nurse visit Dottie Sanchez VARNISHING MACHINE OPERATOR 05/08/2014 Nurse visit Alena Sanchez MOLECULAR BIOLOGY SCIENTIST 02/07/2014 Nurse visit Dottie Sanchez VARNISHING MACHINE OPERATOR 11/22/2013 Nurse visit Dottie Sanchez VARNISHING MACHINE OPERATOR 08/19/2013 Nurse visit Dottie Sanchez VARNISHING MACHINE OPERATOR 05/24/2013 Nurse visit Dottie Sanchez VARNISHING MACHINE OPERATOR 02/22/2013 Nurse visit Dottie Sanchez VARNISHING MACHINE OPERATOR 01/04/2013 Office visit Dottie Sanchez VARNISHING MACHINE OPERATOR 12/04/2012 Office visit Dottie Sanchez VARNISHING MACHINE OPERATOR 02/14/2012 Office visit Dottie Sanchez VARNISHING MACHINE OPERATOR 01/13/2012 Office visit Dottie Sanchez VARNISHING MACHINE OPERATOR 12/15/2011 Office visit Dottie Sanchez VARNISHING MACHINE OPERATOR
--- OUTSIDE RECORDS SUMMARY | 2017-09-22 08:10 | XMS REPORT | Continuity of Care Document ---
Author Author [facility] Organization [facility] Address Unknown Phone Unavailable Allergies Medications Problems Date Dx Coded Attending Type Code Diagnosis Diagnosed By 11/01/2014 SANJEEV CARRASCO, FLOWER Rasmussen Ot V76.12 11/19/2014 FLOWER PACE MD Ot V76.12 11/26/2015 Ot V76.12 11/26/2015 FLOWER PACE MD Ot V76.12 11/26/2015 FLOWER PACE MD Ot V76.12 12/30/2016 Ot V76.12 OTH SCREEN MAMMO-MALIGN NEOPLASM OF ROSENDA 12/30/2016 FLOWER PACE MD Ot V76.12 OTH SCREEN MAMMO-MALIGN NEOPLASM OF ROSENDA 12/30/2016 FLOWER PACE MD Ot V76.12 OTH SCREEN MAMMO-MALIGN NEOPLASM OF ROSENDA 12/30/2016 FLOWER PACE MD, Ot Z12.31 ENCNTR SCREEN MAMMOGRAM FOR MALIGNANT NE 01/02/2017 Ot V76.12 OTH SCREEN MAMMO-MALIGN NEOPLASM OF ROSENDA 01/02/2017 FLOWER PACE MD Ot V76.12 OTH SCREEN MAMMO-MALIGN NEOPLASM OF ROSENDA 01/02/2017 FLOWER PACE MD Ot V76.12 OTH SCREEN MAMMO-MALIGN NEOPLASM OF ROSENDA 01/02/2017 FLOWER PACE MD, Ot Z12.31 ENCNTR SCREEN MAMMOGRAM FOR MALIGNANT NE 01/03/2017 FLOWER PACE MD, Ot Z12.31 ENCNTR SCREEN MAMMOGRAM FOR MALIGNANT NE 01/18/2017 FLOWER PACE MD, Ot Z12.31 ENCNTR SCREEN MAMMOGRAM FOR MALIGNANT NE Procedures Results Encounters ACCT No. Visit Date/Time Discharge Status Pt. Type Provider Facility Loc./Unit Complaint [id number] 01/02/2017 09:27:00 2016 23:59:59 CLS Outpatient FLOWER PACE MD [facility] RAD SCREENING [id number] 11/26/2015 10:04:00 2015 23:59:59 CLS Outpatient FLOWER PACE MD [facility] RAD SCREENING [id number] 10/29/2014 10:08:00 2013 23:59:59 CLS Outpatient FLOWER PACE MD [facility] RAD SCREENING [id number] 10/22/2013 10:49:00 2012 23:59:59 CLS Outpatient FLOWER PACE MD [facility] RAD SCREENING [id number] 09/22/2017 09:00:00 PEN Preadmit MARISABEL HUSTON MD [facility] ENDO SCREENING [id number] 10/18/2012 14:25:00 Document Registration [id number] 08/15/2017 17:10:58 08/15/2017 23: 59:59 CLS Outpatient Walker, Dottie [id number] 07/10/2017 10:59:01 07/10/2017 23: 59:59 CLS Outpatient Stephanie Hardin [id number] 05/18/2017 17:13:58 05/18/2017 23: 59:59 CLS Outpatient Walker, Dottie [id number] 02/24/2017 13:00:56 02/24/2017 23: 59:59 CLS Outpatient Walker, Dottie [id number] 11/30/2016 12:19:39 11/30/2016 23: 59:59 CLS Outpatient Walker, Dottie [id number] 08/31/2016 17:00:52 08/31/2016 23: 59:59 CLS Outpatient Walker, Dottie [id number] 06/06/2016 12:18:03 06/06/2016 23: 59:59 CLS Outpatient Walker, Dottie [id number] 01/14/2016 14:29:18 01/14/2016 23: 59:59 CLS Outpatient Walker, Dottie [id number] 12/18/2015 09:22:46 12/18/2015 23: 59:59 CLS Outpatient Walker, Dottie [id number] 10/02/2015 11:55:39 10/02/2015 23: 59:59 CLS Outpatient Walker, Dottie [id number] 07/08/2015 12:02:16 07/08/2015 23: 59:59 CLS Outpatient Walker, Dottie [id number] 06/22/2015 21:47:09 06/22/2015 23: 59:59 CLS Outpatient Walker, Dottie [id number] 10/21/2014 15:55:02 10/21/2014 23: 59:59 CLS Outpatient Rhonda Parra [id number] 07/28/2014 14:07:07 07/28/2014 23: 59:59 CLS Outpatient Walker, Dottie [id number] 02/07/2014 11:42:55 02/07/2014 23: 59:59 CLS Outpatient Walker, Dottie [id number] 11/22/2013 12:28:52 11/22/2013 23: 59:59 CLS Outpatient Walker, Dottie
[2017-09-22] MEDS ORDERED: LIDOCAINE JELLY 2% (XYLOCAINE) 5 ML TUBE MM PRN (08:15)
[2017-09-22] MEDS ORDERED: 1/2 NS IV SOLUTION 1,000 ML IV PRN (08:15)
[2017-09-22] MEDS ORDERED: MIDAZOLAM 2 MG/2 ML (VERSED) VIAL ONE ×2 (08:43)
[2017-09-22] MEDS ORDERED: fentaNYL INJECTION 100 MCG/2 ML AMP ONE (08:44)
[2017-09-22] MEDS ORDERED: LIDOCAINE JELLY 2% (XYLOCAINE) 5 ML TUBE ONE (08:44)
[2017-09-22] MEDS: fentaNYL INJECTION 100 MCG/2 ML AMP IVP PRN ×2 (09:05→09:15)
--- NOTE | 2017-09-22 09:09 | Pre-Op Note & Conscious Sedat ---
Pre-Operative Progress Note H&P Reviewed The H&P was reviewed, patient examined and no changes noted. Date H&P Reviewed: Sep 22, 2017 Time H&P Reviewed: 08:55 Conscious Sedation Pre-Proced ASA Class: 1 Airway Mallampati Classification: ([place] appropriate class) I. II. III, IV Lungs Heart ASA score ASA 1: a normal healthy patient ASA 2: a patient with a mild systemic disease (mid diabetes, controlled hypertension, obesity ASA 3: a patient with a severe systemic disease that limits activity (angina , COPD, prior Myocardial infarction) ASA 4: a patient with an incapacitating disease that is a constant threat to life (CHF, renal failure) ASA 5: a moribund patient not expected to survive 24 hrs. (ruptured aneurysm) ASA 6: a declared brain patient whose organs are being harvested. For emergent operations, add the letter E after the classification Grade 2 Sedation Plan: Analgesia, Amnesia, Plan communicated to team members, Discussed options with patient/fam, Discussed risks with patient/fam Note The patient is an appropriate candidate to undergo the planned procedure, sedation, and anesthesia. The patient immediately re-assessed prior to indication. MARISABEL HUSTON MD Sep 22, 2017 09:09
[2017-09-22] MEDS: MIDAZOLAM 2 MG/2 ML (VERSED) VIAL IVP PRN ×2 (09:10→09:27)
[2017-09-22 10:00] VITALS: BP 131/94
[2017-09-22 10:40] VITALS: BP 129/90
[2017-09-22 11:05] VITALS: BP 129/90
--- NOTE | 2017-09-22 22:21 | OPERATIVE REPORT ---
DATE OF SERVICE: COLONOSCOPY SUMMARY INDICATION FOR THE PROCEDURE: Screening colonoscopy. DESCRIPTION OF PROCEDURE: The patient was placed in the left lateral decubitus position. Prior to undergoing colonoscopy, digital rectal evaluation was performed. Anal sphincter tone was normal and the perianal reflex is intact. Digital evaluation of the rectum was compatible with a small anterior rectocele. No other abnormalities were noted on digital inspection of the anal canal or distal rectal vault. The colonoscope was then inserted into the rectum and under direct visualization advanced to the cecum. The cecum was identified by identification of the ileocecal valve and the cecal strap. Photographic documentation was obtained. Careful inspection was made as the colonoscope was removed. FINDINGS: Present in the distal rectum, was some subtle crinkling of the mucosa raising the possibility of a flat adenoma, biopsy was obtained and submitted for histopathology. The remainder of the rectum, sigmoid colon, descending colon and splenic flexure were unremarkable. Present in the mid transverse colon was a sessile 6 mm adenomatous-appearing polyp. It was photographed, biopsied, ablated and submitted for histopathology. The remainder of the transverse colon and hepatic flexure were unremarkable. Present in the proximal ascending colon was a diminutive sessile 3 x 8 mm polyp on the top of a haustral fold. It was photographed, biopsied, ablated and submitted for histopathology. No significant blood loss was noted. The cecum of the colon was unremarkable. A/P 1. Two diminutive adenomatous -appearing polyps were removed today, one from the transverse colon, the other one from the proximal ascending colon as noted above without blood loss via hot forceps. There were questionable subtle features raising the possibility of a flat adenoma in the rectum. A biopsy was obtained. As long as there is no evidence for neoplasia on this biopsy and no surprises on the polyps removed, would advocate consideration for repeat surveillance colonoscopy in 5 years. This also takes into consideration family history of second-degree relative diagnosed with colon cancer. Index case was her grandmother, believed to be in her 70s at the time of diagnosis. 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
== END 2017-09-22 11:35 | disposition home or self-care (01) ==
LOC: ENDO 07:46
PROVIDERS: ATTEND Internal Medicine
DX: Z12.11 Encounter for screening for malignant neoplasm of colon (principal); K63.5 Polyp of colon; Z80.0 Family history of malignant neoplasm of digestive organs
CPT/HCPCS: 84703

== ENCOUNTER 2017-09-24 17:50 | Emergency (ER) | payer BC ==
[~2017-09-24] VITALS: Ht 172.7 cm; Wt 77.1 kg
[2017-09-24] MEDS ORDERED: CYCL10TA9 (19:09)
[2017-09-24 19:15] LABS: BASOPHILS % (AUTO) 0 % (0-10); EOSINOPHILS # (AUTO) 0.1 10^3/uL (0.0-0.3); EOSINOPHILS % (AUTO) 1 % (0-10); LYMPHOCYTES % (AUTO) 10 % (12-44); MEAN CORPUSCULAR HEMOGLOBIN 31 PG (25-34); MEAN CORPUSCULAR HGB CONC 35 G/DL (32-36); MEAN CORPUSCULAR VOLUME 90 FL (80-99); MEAN PLATELET VOLUME 11.3 FL (7.4-10.4); MONOCYTES # (AUTO) 0.6 X 10^3 (0.0-1.0); MONOCYTES % (AUTO) 6 % (0-12); NEUTROPHILS # (AUTO) 8.2 X 10^3 (1.8-7.8); NEUTROPHILS % (AUTO) 83 % (42-75); PLATELET COUNT 232 10^3/uL (130-400); RED BLOOD COUNT 4.56 10^6/uL (4.35-5.85); RED CELL DISTRIBUTION WIDTH 12.6 % (10.0-14.5); WHITE BLOOD COUNT 9.9 10^3/uL (4.3-11.0)
[2017-09-24 20:02] VITALS: BP 133/92
--- NOTE | 2017-09-24 20:04 | ED GI ---
General Chief Complaint: Abdominal/GI Problems Stated Complaint: POST COLONOSCOPY/BLEEDING Nursing Triage Note: pt had colonoscopy on monday with dr ryan. polyp x 2 removed. normal bm yesterday. bm with large amount of bright red blood today. c/o abd discomfort. nausea with episode. Sepsis Screen: No Definite Risk Source of Information: Patient Exam Limitations: No Limitations History of Present Illness Time Seen By Provider: 18:48 Initial Comments This 47-year-old woman presents to the emergency room with concerns about a large amount of bright red blood per stool today. She has had some minor lower abdominal discomfort as well. She had some nausea and lightheadedness with the episode as well which has now resolved. She had a colonoscopy performed by Dr. Ryan on Monday. There were no complications. Three biopsies were performed according to the report on her chart including to polyp removals. Patient has recovered well until today. She denies any fever. She denies use of any blood thinning medications. Allergies and Home Medications Allergies Coded Allergies: No Known Drug Allergies (Unverified , 09/15/17) Home Medications Cyclobenzaprine HCl 10 Mg Tablet, (Reported) Review of Systems Constitutional: no symptoms reported EENTM: No Symptoms Reported Respiratory: No Symptoms Reported Cardiovascular: No Symptoms Reported Gastrointestinal: See HPI Genitourinary: No Symptoms Reported Musculoskeletal: no symptoms reported Skin: no symptoms reported Psychiatric/Neurological: No Symptoms Reported Endocrine: No Symptoms Reported Hematologic/Lymphatic: See HPI Past Bvtspnl-Zfktbo-Hkapnk Hx Patient Social History Alcohol Use: Occasionally Uses Recreational Drug Use: No Smoking Status: Never a Smoker Recent Foreign Travel: No Contact w/Someone Who Travel: No Recent Infectious Disease Expo: No Recent Hopitalizations: No Immunizations Up To Date Date of Influenza Vaccine: Sep 11, 2017 Seasonal Allergies Seasonal Allergies: Yes Surgeries History of Surgeries: Yes Surgeries: Abdominal (colonoscopy), Eye Surgery Respiratory History of Respiratory Disorde: No Cardiovascular History of Cardiac Disorders: No Neurological History of Neurological Disord: No Gastrointestinal History of Gastrointestinal Di: No Musculoskeletal History of Musculoskeletal Dis: No Endocrine History of Endocrine Disorders: No Cancer History of Cancer: No Psychosocial History of Psychiatric Problem: No Integumentary History of Skin or Integumenta: No Blood Transfusions History of Blood Disorders: No Physical Exam Vital Signs VS - Last 72 Hours, by Label 09/24/17 09/24/17 18:51 20:02 Temp 97.9 97.9 Pulse 85 95 Resp 16 16 B/P (MAP) 139/94 Pulse Ox 99 O2 Delivery Room Air Capillary Refill : Less Than 3 Seconds General Appearance: WD/WN, no apparent distress HEENT: normal ENT inspection Neck: normal inspection Respiratory: lungs clear, normal breath sounds, no respiratory distress, no accessory muscle use Cardiovascular: regular rate, rhythm, no edema, no murmur Gastrointestinal: normal bowel sounds, soft, tenderness (minimal lower abdominal discomfort) Rectal: other (no masses, external hemorrhoids versus skin tag, scant amount of dark reddish-brown blood with no active bleeding.) Extremities: normal inspection, no pedal edema 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, no motor/sensory deficits, alert, normal mood/affect, oriented x 3 Skin: normal color, warm/dry Progress/Results/Core Measures Results/Orders Lab Results Laboratory Tests Test 09/24/17 19:05 Range/Units White Blood Count 9.9 4.3-11.0 10^3/uL Red Blood Count 4.56 4.35-5.85 10^6/uL Hemoglobin 14.3 11.5-16.0 G/DL Hematocrit 41 35-52 % Mean Corpuscular Volume 90 80-99 FL Mean Corpuscular Hemoglobin 31 25-34 PG Mean Corpuscular Hemoglobin Concent 35 32-36 G/DL Red Cell Distribution Width 12.6 10.0-14.5 % Platelet Count 232 130-400 10^3/uL Mean Platelet Volume 11.3 H 7.4-10.4 FL Neutrophils (%) (Auto) 83 H 42-75 % Lymphocytes (%) (Auto) 10 L 12-44 % Monocytes (%) (Auto) 6 0-12 % Eosinophils (%) (Auto) 1 0-10 % Basophils (%) (Auto) 0 0-10 % Neutrophils # (Auto) 8.2 H 1.8-7.8 X 10^3 Lymphocytes # (Auto) 1.0 1.0-4.0 X 10^3 Monocytes # (Auto) 0.6 0.0-1.0 X 10^3 Eosinophils # (Auto) 0.1 0.0-0.3 10^3/uL Basophils # (Auto) 0.0 0.0-0.1 10^3/uL My Orders Orders - BRUEGGEMANN,JOSE T MD Cbc With Automated Diff (09/24/17 18:54) Saline Lock/Iv-Start (09/24/17 18:54) Vital Signs/I&O Vital Sign - Last 12Hours 09/24/17 09/24/17 18:51 20:02 Temp 97.9 97.9 Pulse 85 95 Resp 16 16 B/P (MAP) 139/94 Pulse Ox 99 O2 Delivery Room Air Blood Pressure Mean: 109 Progress Note : Progress Note Labs reviewed with patient. She was provided with reassurance and strict return precautions. She was invited to call back with any problems, questions, or concerns. Departure Impression Impression: Primary Impression: Rectal bleeding Disposition: HOME, SELF-CARE Condition: Improved Departure-Patient Inst. Decision time for Depature: 19:50 Referrals: NO,LOCAL PHYSICIAN (PCP) Primary Care Physician SHANIKA OLMSTEAD (Family) Primary Care Physician Patient Instructions: Colonoscopy Add. Discharge Instructions: Consume a only clear liquids until you discuss further with Dr. Ryan tomorrow. Take only Tylenol (acetaminophen) for pain. Do not take any aspirin or NSAID medication such as ibuprofen or naproxen. Return to the ER or call 911 if you develop worsening problems including worsening pain, recurrent bleeding, fever, persistent lightheadedness or shortness of breath, etc. All discharge instructions reviewed with patient and/or family. Voiced understanding. Copy Copies To 1: MARISABEL RYAN MD, JOSHUA T MD Sep 24, 2017 20:04
== END 2017-09-24 20:10 | disposition home or self-care (01) ==
LOC: EDUNIT# 17:50 → ER 17:51
DX: K62.5 Hemorrhage of anus and rectum (principal); K91.840 Postprocedural hemorrhage of a digestive system organ or structure following a digestive system procedure; Z86.010 Personal history of colon polyps; Z98.890 Other specified postprocedural states
CPT/HCPCS: 36415; 85025

== ENCOUNTER → 2018-01-04 | Outpatient (CLI) | payer BC ==
[~2018-01-04] MED LIST: CYCL10TA9
--- NOTE | 2018-01-04 18:13 | Diagnostic Imaging Report ---
INDICATION: Routine screening. Comparison is made with prior exam from 01/02/2017 and 11/26/2015. The current study was also evaluated with a Computer Aided Detection (CAD) system. Scattered fibroglandular densities are identified bilaterally. The parenchymal pattern is stable. Probable tiny cluster of cysts in the upper outer left breast are stable. No new mass or malignant appearing microcalcifications are seen. Axillae are unremarkable. IMPRESSION: No mammographic features suspicious for malignancy are identified. ACR BI-RADS Category 2: Benign findings. Result letter will be mailed to the patient. Note: At least 10% of breast cancer is not imaged by mammography. Dictated by: Dictated on workstation # [id number]
== END ==
LOC: RAD 09:55
PROVIDERS: ATTEND Obstetrics & Gynecology
DX: Z12.31 Encounter for screening mammogram for malignant neoplasm of breast (principal)
CPT/HCPCS: 77067

== ENCOUNTER → 2019-03-11 | Outpatient (CLI) | payer BC ==
--- NOTE | 2019-03-11 12:16 | Diagnostic Imaging Report ---
INDICATION: Screening. COMPARISON: 01/04/2018, 01/02/2017, and 11/26/2015. TECHNIQUE: Bilateral CC and MLO 3D mammography was performed. The current study was also evaluated with a Computer Aided Detection (CAD) system. FINDINGS: There are scattered fibroglandular densities bilaterally. There are a few benign type calcifications. There is no dominant mass, spiculated lesion, or suspicious calcifications identified. IMPRESSION: Benign findings. ACR BI-RADS Category 2: Benign findings. Result letter will be mailed to the patient. Note: At least 10% of breast cancer is not imaged by mammography. Dictated by: Dictated on workstation # [id number]
== END ==
LOC: RAD 09:41
PROVIDERS: ATTEND Obstetrics & Gynecology
DX: Z12.31 Encounter for screening mammogram for malignant neoplasm of breast (principal)
CPT/HCPCS: 77067

== ENCOUNTER 2019-04-10 05:33 | Outpatient (CLI) | payer BC ==
[~2019-04-10] VITALS: Ht 172.7 cm; Wt 79.4 kg
[2019-04-10] MEDS ORDERED: MULT-974 PO (10:14)
[2019-04-10] MEDS ORDERED: MEDR150D8 IM (10:14)
== END 2019-04-10 10:29 | disposition home or self-care (01) ==
LOC: PREOP 05:33
PROVIDERS: ATTEND Obstetrics & Gynecology
DX: Z01.818 Encounter for other preprocedural examination (principal)

== ENCOUNTER 2019-04-19 12:15 | Day surgery (SDC) | payer BC ==
[~2019-04-19] VITALS: Ht 172.7 cm; Wt 79.4 kg
[2019-04-19] VITALS (9 sets, daily range): BP systolic 112–151; BP diastolic 72–103
[~2019-04-19 12:15] MED LIST changes: +MEDR150D8 IM; +MULT-974 PO; +OXYC1TAB87 PO
[2019-04-19] MEDS ORDERED: ONDANSETRON 4 MG/2 ML (SDV) Z0FRAN ONE ×2 (12:41→12:53)
[2019-04-19] MEDS ORDERED: proPOfol 200 MG/20 ML (DIPRIVAN) VIAL IV ONE (12:41)
[2019-04-19] MEDS ORDERED: LIDOCAINE PF 2% 5 ML (XYLOCAINE) VIAL ONE (12:41)
[2019-04-19] MEDS ORDERED: fentaNYL INJECTION 100 MCG/2 ML AMP ONE (12:41)
[2019-04-19] MEDS ORDERED: DEXAMETHASONE 10 MG/ML (DECADRON) 1 ML VIAL ONE (12:41)
[2019-04-19] MEDS ORDERED: MIDAZOLAM 2 MG/2 ML (VERSED) VIAL ONE (12:41)
[2019-04-19] MEDS ORDERED: LACTATED RINGERS 1,000 ML IV PRN (12:44)
[2019-04-19] MEDS ORDERED: ceFAZolin INJECTION 1,000 MG in WATER (STERILE) FOR INJECTION 10 ML IV ONE (12:45)
[2019-04-19] MEDS ORDERED: SCOPOLAMINE 1.5 MG (TRANSDERM-SCOP) PATCH ONE (12:53)
[2019-04-19] MEDS ORDERED: FAMOTIDINE 20MG/2ML IV (PEPCID) ONE (12:53)
[2019-04-19 13:16] LABS: BASOPHILS % (AUTO) 0 % (0-10); EOSINOPHILS # (AUTO) 0.1 10^3/uL (0.0-0.3); EOSINOPHILS % (AUTO) 2 % (0-10); HEMATOCRIT 45 % (35-52); HEMOGLOBIN 15.8 G/DL (11.5-16.0); LYMPHOCYTES # (AUTO) 1.3 X 10^3 (1.0-4.0); LYMPHOCYTES % (AUTO) 23 % (12-44); MEAN CORPUSCULAR HEMOGLOBIN 31 PG (25-34); MEAN CORPUSCULAR HGB CONC 35 G/DL (32-36); MEAN CORPUSCULAR VOLUME 89 FL (80-99); MEAN PLATELET VOLUME 11.5 FL (7.4-10.4); MONOCYTES # (AUTO) 0.4 X 10^3 (0.0-1.0); MONOCYTES % (AUTO) 7 % (0-12); NEUTROPHILS # (AUTO) 3.9 X 10^3 (1.8-7.8); NEUTROPHILS % (AUTO) 67 % (42-75); PLATELET COUNT 219 10^3/uL (130-400); RED CELL DISTRIBUTION WIDTH 13.1 % (10.0-14.5); WHITE BLOOD COUNT 5.8 10^3/uL (4.3-11.0)
[2019-04-19] MEDS ORDERED: D5 LR IV SOLUTION 1,000 ML IV SCH (15:03)
[2019-04-19] MEDS ORDERED: MEPERIDINE (DEMEROL) INJ 100 MG/ML IM ONE (15:15)
[2019-04-19] MEDS ORDERED: ONDANSETRON 4 MG/2 ML (SDV) Z0FRAN IVP PRN ×2 (15:15→16:30)
[2019-04-19] MEDS ORDERED: KETOROLAC 30 MG/ML VIAL IVP ONE (15:15)
[2019-04-19] MEDS ORDERED: oxyCODONE/APAP 5/325MG (PERCOCET 5) TABLET PO PRN (15:15)
[2019-04-19] MEDS ORDERED: PROMETHAZINE INJ 25 MG/ML (PHENERGAN) AMP IM ONE (15:15)
[2019-04-19] MEDS ORDERED: SEVOFLURANE (ULTANE) 15 ML INHAL SOLN ONE (16:15)
[2019-04-19] MEDS ORDERED: KETOROLAC 30 MG/ML VIAL ONE (16:19)
[2019-04-19] MEDS ORDERED: fentaNYL INJECTION 100 MCG/2 ML AMP IVP ONE (16:30)
[2019-04-19] MEDS ORDERED: morphine INJ 10 MG/ML 1ML (SYR OR VIAL) IVP ONE (16:30)
[2019-04-19] MEDS ORDERED: FAMOTIDINE 20MG/2ML IV (PEPCID) IVP ONE (16:30)
[2019-04-19] MEDS ORDERED: SCOPOLAMINE 1.5 MG (TRANSDERM-SCOP) PATCH TD ONE (16:30)
[2019-04-19] MEDS ORDERED: ONDANSETRON 4 MG/2 ML (SDV) Z0FRAN IVP ONE (16:30)
--- OUTSIDE RECORDS SUMMARY | 2019-04-19 16:53 | XMS REPORT ---
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 Name Role Phone Dottie Sanchez PCP Valentina Hardin PreferredProvider Allergies and Adverse Reactions Name Reaction Notes NO KNOWN DRUG ALLERGIES Plan of Treatment Planned Activity Comments Planned Date Planned Time Plan/Goal LEFT EAR PAIN AND SWELLING 03/11/2019 9:00 AM IM Injection 08/31/2016 12:00 AM Injection, Subcutaneous/IM 02/24/2017 12:00 AM Injection, Subcutaneous/IM 05/18/2017 12:00 AM Injection, Subcutaneous/IM 08/15/2017 12:00 AM Injection, Subcutaneous/IM 07/31/2018 12:00 AM Injection, Subcutaneous/IM 01/18/2019 12:00 AM Medications Active Name Start Date Estimated Completion Date SIG Comments Singulair 10 mg oral tablet 02/26/2019 04/27/2019 take 1 tablet (10 mg) by oral route once daily in the MORNING Name Start Date Expiration Date SIG Comments phentermine 37.5 mg oral tablet 01/04/2013 02/03/2013 take 1 tablet (37.5 mg) by oral route once daily before breakfast for 30 days phentermine 37.5 mg oral tablet 03/07/2016 04/06/2016 take 1 tablet (37.5 mg) by oral route once daily before breakfast for 30 days amoxicillin 875 mg oral tablet 11/14/2018 11/24/2018 take 1 tablet (875 mg) by oral route every 12 hours for 10 days Discontinued Name Start Date Discontinued Date SIG Comments Sprintec (28) 0.25-35 mg-mcg oral tablet 01/04/2013 take 1 tablet by oral route once daily Depo-Provera 150 mg/mL intramuscular suspension 01/04/2013 06/28/2018 inject 1 milliliter (150 mg) by intramuscular route every 3 months for at least 6 months phentermine 37.5 mg oral tablet 01/14/2016 03/07/2016 take 1 tablet (37.5 mg) by oral route once daily before breakfast for 30 days cyclobenzaprine 10 mg oral tablet 07/10/2017 06/28/2018 1/2 TO 1 TAB AT BEDTIME FOR MUSCLE SPASMS Problem List Not available. Vital Signs Date Time BP-Sys(mm[Hg] BP-Bri(mm[Hg]) HR(bpm) RR(rpm) Temp WT HT HC BMI BSA BMI Percentile O2 Sat(%) 02/26/2019 9:29:00 AM 128 mmHg 72 mmHg 89 bpm 16 rpm 99.3 F 184.25 lbs 68 in 28.0148 kg/m 2.0024 m 100 % 11/14/2018 1:50:00 PM 128 mmHg 78 mmHg 82 bpm 18 rpm 98.8 F 190.25 lbs 68 in 28.93 kg/m2 2.03 m2 98 % 06/28/2018 3:28:00 PM 126 mmHg 72 mmHg 92 bpm 18 rpm 99.1 F 180.125 lbs 68 in 27.3876 kg/m 1.9799 m 98 % 07/10/2017 10:02:00 AM 138 mmHg 84 mmHg [...] X-RAY EXAM NECK SPINE 2-3 VW Reviewed 11/09/2017 12:00 AM THER/PROPH/DIAG INJ SC/IM Reviewed 11/09/2017 12:00 AM Depo Provera Injection, 150 mg Reviewed 12/04/2012 12:00 AM URINE TEST Reviewed 12/04/2012 12:00 AM THER/PROPH/DIAG INJ SC/IM Reviewed 12/04/2012 12:00 AM Depo-Provera 150 mg Reviewed 02/07/2018 12:00 AM THER/PROPH/DIAG INJ SC/IM Reviewed 02/07/2018 12:00 AM Depo Provera Injection, 150 mg Reviewed 05/03/2018 12:00 AM THER/PROPH/DIAG INJ SC/IM Reviewed 05/03/2018 12:00 AM Depo Provera Injection, 150 mg Reviewed 02/22/2013 12:00 AM THER/PROPH/DIAG INJ SC/IM Reviewed 02/22/2013 12:00 AM Depo-Provera 150 mg Reviewed 06/28/2018 12:00 AM Physical Therapy Consultation Reviewed 05/24/2013 12:00 AM THER/PROPH/DIAG INJ SC/IM Reviewed 05/24/2013 12:00 AM Depo-Provera 150 mg Reviewed 10/23/2018 12:00 AM THER/PROPH/DIAG INJ SC/IM Reviewed 10/23/2018 12:00 AM Depo Provera Injection, 150 mg Reviewed 11/14/2018 12:00 AM THER/PROPH/DIAG INJ SC/IM Reviewed 11/14/2018 12:00 AM Decadron 4mg Injection Reviewed 11/14/2018 12:00 AM Depo-Medrol 40mg Injection Reviewed 04/12/2019 12:00 AM THER/PROPH/DIAG INJ SC/IM Reviewed 04/12/2019 12:00 AM Depo Provera Injection, 150 mg Reviewed 08/19/2013 12:00 AM THER/PROPH/DIAG [...] Provera Injection, 150 mg Reviewed Results Summary Date and Description Results 11/14/2018 10:28 PM Falls in last 6 months? No Unsteady or worry about falling? No Fall Risk Assessment Not At Risk During the past month, have you been feeling depressed? No During the past month, have you lost interest in usual activity? No History Of Immunizations Not available. History of Past Illness Name Date of Onset Comments *No known medical problems Body Mass Index [BMI]; body mass index between 25-29, adult; body mass index 28.0- 28.9, adult Dec 15 2011 2:23PM Exercise Counseling Dec 15 2011 2:23PM Dietary Counseling Dec 15 2011 2:23PM Body Mass Index [BMI]; body mass index between 25-29, adult; body mass index 27.0- 27.9, adult Jan 13 2012 11:09AM Dietary Counseling Jan 13 2012 11:09AM Exercise Counseling Jan 13 2012 11:09AM Constipation Jan 13 2012 11:09AM Body Mass Index [BMI]; body mass index between 25-29, adult; body mass index 27.0- 27.9, adult Feb 14 2012 11:48AM Dietary Counseling [...] of injectable contraceptive Aug 15 2017 4:18PM Encounter for surveillance of injectable contraceptive Nov 09 2017 4:04PM Encounter for surveillance of injectable contraceptive Feb 07 2018 4:27PM Encounter for surveillance of injectable contraceptive May 03 2018 12:11PM DDD (degenerative disc disease), cervical Jun 28 2018 3:30PM Lordosis of cervicothoracic region Jun 28 2018 3:30PM Encounter for surveillance of injectable contraceptive Jul 30 2018 5:18PM Encounter for surveillance of injectable contraceptive Oct 24 2018 9:09AM Acute pharyngitis, unspecified etiology Nov 14 2018 1:52PM Acute non-recurrent pansinusitis Nov 14 2018 1:52PM Encounter for surveillance of injectable contraceptive Jan 18 2019 1:10PM Acute recurrent maxillary sinusitis Feb 26 2019 9:35AM Auditory tube disorder, left Feb 26 2019 9:35AM Encounter for surveillance of injectable contraceptive Apr 12 2019 8:25AM Payers Insurance Name Company Name Plan Name Plan Number Policy Number Policy Group Number Start Date BCBS [facility] [id number] Tuesday, 2014 [employer] [facility] [id number] Wednesday, 2010 History of Encounters Visit Date Visit Type Provider 04/12/2019 Nurse visit Dottie Sanchez SIGNALS INTELLIGENCE ANALYST 02/26/2019 Office visit Valentina Hardin SIGNALS INTELLIGENCE ANALYST 01/18/2019 Nurse visit Sandra Brown SIGNALS INTELLIGENCE ANALYST 11/14/2018 Office visit Valentina Hardin SIGNALS INTELLIGENCE ANALYST 10/23/2018 Nurse visit Dottie Walker SIGNALS INTELLIGENCE ANALYST 07/30/2018 Nurse visit Dottie Daniel SIGNALS INTELLIGENCE ANALYST 06/28/2018 Office visit Valentina Hardin SIGNALS INTELLIGENCE ANALYST 05/03/2018 Nurse visit Dottie Daniel SIGNALS INTELLIGENCE ANALYST 02/07/2018 Nurse visit Dottie Daniel SIGNALS INTELLIGENCE ANALYST 11/09/2017 Nurse visit Fransico Downey MD 08/15/2017 Nurse visit Dottie Sanchez SIGNALS INTELLIGENCE ANALYST 07/10/2017 Office visit Valentina Hardin SIGNALS INTELLIGENCE ANALYST 05/18/2017 Nurse visit Dottie Daniel SIGNALS INTELLIGENCE ANALYST 02/24/2017 Nurse visit Dottie Daniel SIGNALS INTELLIGENCE ANALYST 11/30/2016 Nurse visit Dottie Walker SIGNALS INTELLIGENCE ANALYST 08/31/2016 Nurse visit Dottie Walker SIGNALS INTELLIGENCE ANALYST 06/06/2016 Nurse visit Dottie Walker SIGNALS INTELLIGENCE ANALYST 03/07/2016 Office visit Dottie Walker SIGNALS INTELLIGENCE ANALYST 01/14/2016 Office visit Dottie Walker SIGNALS INTELLIGENCE ANALYST 12/18/2015 Office visit Dottie Walker SIGNALS INTELLIGENCE ANALYST 10/02/2015 Nurse visit Dottie Walker SIGNALS INTELLIGENCE ANALYST 07/08/2015 Nurse visit Dottie Walker SIGNALS INTELLIGENCE ANALYST 04/14/2015 Nurse visit Dottie Walker SIGNALS INTELLIGENCE ANALYST 01/14/2015 Nurse visit Dottie Walker SIGNALS INTELLIGENCE ANALYST 10/21/2014 Nurse visit Rhonda Parra SIGNALS INTELLIGENCE ANALYST 07/28/2014 Nurse visit Dottie Walker SIGNALS INTELLIGENCE ANALYST 05/08/2014 Nurse visit Alena Kirk SIGNALS INTELLIGENCE ANALYST 02/07/2014 Nurse visit Dottie Walker SIGNALS INTELLIGENCE ANALYST 11/22/2013 Nurse visit Dottie Walker SIGNALS INTELLIGENCE ANALYST 08/19/2013 Nurse visit Dottie Walker SIGNALS INTELLIGENCE ANALYST 05/24/2013 Nurse visit Dottie Walker SIGNALS INTELLIGENCE ANALYST 02/22/2013 Nurse visit Dottie Walker SIGNALS INTELLIGENCE ANALYST 01/04/2013 Office visit Dottie Walker SIGNALS INTELLIGENCE ANALYST 12/04/2012 Office visit Dottie Walker SIGNALS INTELLIGENCE ANALYST 02/14/2012 Office visit Dottie Walker SIGNALS INTELLIGENCE ANALYST 01/13/2012 Office visit Dottie Walker SIGNALS INTELLIGENCE ANALYST 12/15/2011 Office visit Dottie Walker SIGNALS INTELLIGENCE ANALYST
--- OUTSIDE RECORDS SUMMARY | 2019-04-19 16:53 | XMS REPORT | Clinical Summary ---
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
--- OUTSIDE RECORDS SUMMARY | 2019-04-19 16:54 | XMS REPORT ---
Author Author Sandra Brown Organization [facility] Address [address] [place], [place] [phone] Care Team Providers Care Weight Count Operator Name Role Phone Sandra Brown PCP Valentina Hardin PreferredProvider Allergies and Adverse Reactions Name Reaction Notes NO KNOWN DRUG ALLERGIES Plan of Treatment Planned Activity Comments Planned Date Planned Time Plan/Goal IM Injection 08/31/2016 12:00 AM Injection, Subcutaneous/IM 02/24/2017 12:00 AM Injection, Subcutaneous/IM 05/18/2017 12:00 AM Injection, Subcutaneous/IM 08/15/2017 12:00 AM Injection, Subcutaneous/IM 07/31/2018 12:00 AM Injection, Subcutaneous/IM 01/18/2019 12:00 AM Medications Name Start Date Expiration Date SIG Comments [...] HC BMI BSA BMI Percentile O2 Sat(%) 11/14/2018 1:50:00 PM 128 mmHg 78 mmHg 82 bpm 18 rpm 98.8 F 190.25 lbs 68 in 28.9271 kg/m 2.0348 m 98 % 06/28/2018 3:28:00 PM 126 mmHg 72 mmHg 92 bpm 18 rpm 99.1 F 180.125 lbs 68 in 27.39 kg/m2 1.98 m2 98 % 07/10/2017 10:02:00 AM 138 mmHg [...] 11/14/2018 12:00 AM Depo-Medrol 40mg Injection Reviewed 08/19/2013 12:00 AM THER/PROPH/DIAG INJ SC/IM [...] of injectable contraceptive Jan 18 2019 1:10PM Payers Insurance Name Company Name Plan Name Plan Number Policy Number Policy Group Number Start Date [facility] [id number] Tuesday, 2014 [employer] [id number] Wednesday, 2010 History of Encounters Visit Date Visit Type Provider 01/18/2019 Nurse visit Sandra Brown BUSINESS CONTINUITY PLANNING DIRECTOR 11/14/2018 Office visit Valentina Haridn BUSINESS CONTINUITY PLANNING DIRECTOR 10/23/2018 Nurse visit Dottie Sanchez BUSINESS CONTINUITY PLANNING DIRECTOR 07/30/2018 Nurse visit Dottie Sanchez BUSINESS CONTINUITY PLANNING DIRECTOR 06/28/2018 Office visit Valentina Hardin BUSINESS CONTINUITY PLANNING DIRECTOR 05/03/2018 Nurse visit Dottie Sanchez BUSINESS CONTINUITY PLANNING DIRECTOR 02/07/2018 Nurse visit Dottie Sanchez BUSINESS CONTINUITY PLANNING DIRECTOR 11/09/2017 Nurse visit Fransico Downey MD 08/15/2017 Nurse visit Dottie Sanchez BUSINESS CONTINUITY PLANNING DIRECTOR 07/10/2017 Office visit Valentina Hardin BUSINESS CONTINUITY PLANNING DIRECTOR 05/18/2017 Nurse visit Dottie Sanchez BUSINESS CONTINUITY PLANNING DIRECTOR 02/24/2017 Nurse visit Dottie Walker BUSINESS CONTINUITY PLANNING DIRECTOR 11/30/2016 Nurse visit Dottie Walker BUSINESS CONTINUITY PLANNING DIRECTOR 08/31/2016 Nurse visit Dottie Walker BUSINESS CONTINUITY PLANNING DIRECTOR 06/06/2016 Nurse visit Dottie Walker BUSINESS CONTINUITY PLANNING DIRECTOR 03/07/2016 Office visit Dottie Walker BUSINESS CONTINUITY PLANNING DIRECTOR 01/14/2016 Office visit Dottie Walker BUSINESS CONTINUITY PLANNING DIRECTOR 12/18/2015 Office visit Dottie Walker BUSINESS CONTINUITY PLANNING DIRECTOR 10/02/2015 Nurse visit Dottie Walker BUSINESS CONTINUITY PLANNING DIRECTOR 07/08/2015 Nurse visit Dottie Walker BUSINESS CONTINUITY PLANNING DIRECTOR 04/14/2015 Nurse visit Dottie Walker BUSINESS CONTINUITY PLANNING DIRECTOR 01/14/2015 Nurse visit Dottie Walker BUSINESS CONTINUITY PLANNING DIRECTOR 10/21/2014 Nurse visit Rhonda Parra BUSINESS CONTINUITY PLANNING DIRECTOR 07/28/2014 Nurse visit Dottie Walker BUSINESS CONTINUITY PLANNING DIRECTOR 05/08/2014 Nurse visit Alena Sanchez SENIOR RADIATION PROTECTION TECHNICIAN 02/07/2014 Nurse visit Dottie Walker BUSINESS CONTINUITY PLANNING DIRECTOR 11/22/2013 Nurse visit Dottie Walker BUSINESS CONTINUITY PLANNING DIRECTOR 08/19/2013 Nurse visit Dottie Walker BUSINESS CONTINUITY PLANNING DIRECTOR 05/24/2013 Nurse visit Dottie Walker BUSINESS CONTINUITY PLANNING DIRECTOR 02/22/2013 Nurse visit Dottie Walker BUSINESS CONTINUITY PLANNING DIRECTOR 01/04/2013 Office visit Dottie Walker BUSINESS CONTINUITY PLANNING DIRECTOR 12/04/2012 Office visit Dottie Walker BUSINESS CONTINUITY PLANNING DIRECTOR 02/14/2012 Office visit Dottie Walker BUSINESS CONTINUITY PLANNING DIRECTOR 01/13/2012 Office visit Dottie Walker BUSINESS CONTINUITY PLANNING DIRECTOR 12/15/2011 Office visit Dottie Walker BUSINESS CONTINUITY PLANNING DIRECTOR
--- OUTSIDE RECORDS SUMMARY | 2019-04-19 16:54 | XMS REPORT ---
Author Author Dottie Sanchez [facility] Address [address] [place], [place] [id number] Care Team Providers Care Pipeline Operator Name Role Phone Dottie Sanchez PCP [...] 12:00 AM Injection, Subcutaneous/IM 01/18/2019 12:00 AM Injection, Subcutaneous/IM 04/12/2019 12:00 AM Medications Active Name Start Date [...] Number Policy Group Number Start Date BCBS [facility] [id number] Tuesday, 2014 [facility] [place] [employer] [id number] Wednesday, 2010 History of Encounters Visit Date Visit Type Provider 04/12/2019 Nurse visit Dottie Walker APPRENTICE PLUMBER 02/26/2019 Office visit Valentina Hardin APPRENTICE PLUMBER 01/18/2019 Nurse visit Sandra Brown APPRENTICE PLUMBER 11/14/2018 Office visit Valentina Hardin APPRENTICE PLUMBER 10/23/2018 Nurse visit Dottie Daniel APPRENTICE PLUMBER 07/30/2018 Nurse visit Dottie Walker APPRENTICE PLUMBER 06/28/2018 Office visit Valentina Hadrin APPRENTICE PLUMBER 05/03/2018 Nurse visit Dottie Walker APPRENTICE PLUMBER 02/07/2018 Nurse visit Dottie Walker APPRENTICE PLUMBER 11/09/2017 Nurse visit Fransico Downey MD 08/15/2017 Nurse visit Dottie Sanchez APPRENTICE PLUMBER 07/10/2017 Office visit Valentina Hardin APPRENTICE PLUMBER 05/18/2017 Nurse visit Dottie Walker APPRENTICE PLUMBER 02/24/2017 Nurse visit Dottie Walker APPRENTICE PLUMBER 11/30/2016 Nurse visit Dottie Walker APPRENTICE PLUMBER 08/31/2016 Nurse visit Dottie Walker APPRENTICE PLUMBER 06/06/2016 Nurse visit Dottie Walker APPRENTICE PLUMBER 03/07/2016 Office visit Dottie Walker APPRENTICE PLUMBER 01/14/2016 Office visit Dottie Walker APPRENTICE PLUMBER 12/18/2015 Office visit Dottie Walker APPRENTICE PLUMBER 10/02/2015 Nurse visit Dottie Walker APPRENTICE PLUMBER 07/08/2015 Nurse visit Dottie Walker APPRENTICE PLUMBER 04/14/2015 Nurse visit Dottie Walker APPRENTICE PLUMBER 01/14/2015 Nurse visit Dottie Walker APPRENTICE PLUMBER 10/21/2014 Nurse visit Rhonda Parra APPRENTICE PLUMBER 07/28/2014 Nurse visit Dottie Walker APPRENTICE PLUMBER 05/08/2014 Nurse visit Alena Kirk EQUITY HOLDER 02/07/2014 Nurse visit Dottie Walker APPRENTICE PLUMBER 11/22/2013 Nurse visit Dottie Walker APPRENTICE PLUMBER 08/19/2013 Nurse visit Dottie Walker APPRENTICE PLUMBER 05/24/2013 Nurse visit Dottie Walker APPRENTICE PLUMBER 02/22/2013 Nurse visit Dottie Walker APPRENTICE PLUMBER 01/04/2013 Office visit Dottie Walker APPRENTICE PLUMBER 12/04/2012 Office visit Dottie Walker APPRENTICE PLUMBER 02/14/2012 Office visit Dottie Walker APPRENTICE PLUMBER 01/13/2012 Office visit Dottie Walker APPRENTICE PLUMBER 12/15/2011 Office visit Dottie Walker APPRENTICE PLUMBER
--- OUTSIDE RECORDS SUMMARY | 2019-04-19 16:55 | XMS REPORT ---
Author Author Valentina Hardin [facility] Address [address] [place], [place] [id number] Care Team Providers Care Motor Mechanic Name Role Phone Valentina Hardin PCP Valentina Hardin PreferredProvider Allergies and Adverse Reactions Name Reaction Notes NO KNOWN DRUG ALLERGIES Plan of Treatment Planned Activity Comments Planned Date Planned Time Plan/Goal IM Injection 08/31/2016 12:00 AM Injection, Subcutaneous/IM 02/24/2017 12:00 AM Injection, Subcutaneous/IM 05/18/2017 12:00 AM Injection, Subcutaneous/IM 08/15/2017 12:00 AM Injection, Subcutaneous/IM 07/31/2018 12:00 AM Medications Active Name Start Date Estimated Completion Date SIG Comments amoxicillin 875 mg oral tablet 11/14/2018 11/24/2018 take 1 tablet (875 mg) by oral route every 12 hours for 10 days Name Start Date Expiration Date SIG [...] Acute non-recurrent pansinusitis Nov 14 2018 1:52PM Payers Insurance Name Company Name Plan Name Plan Number Policy Number Policy Group Number Start Date [facility] [id number] Tuesday, 2014 [employer] [id number] Wednesday, 2010 History of Encounters Visit Date Visit Type Provider 11/14/2018 Office visit Valentina Hardin POTATO CHIP MAKER 10/23/2018 Nurse visit Dottie Sanchez POTATO CHIP MAKER 07/30/2018 Nurse visit Dottie Sanchez POTATO CHIP MAKER 06/28/2018 Office visit Valentina Hardin POTATO CHIP MAKER 05/03/2018 Nurse visit Dottie Sanchez POTATO CHIP MAKER 02/07/2018 Nurse visit Dottie Sanchez POTATO CHIP MAKER 11/09/2017 Nurse visit Fransico Downey MD 08/15/2017 Nurse visit Dottie Sanchez POTATO CHIP MAKER 07/10/2017 Office visit Valentina Hardin POTATO CHIP MAKER 05/18/2017 Nurse visit Dottie Sanchez POTATO CHIP MAKER 02/24/2017 Nurse visit Dottie Sanchez POTATO CHIP MAKER 11/30/2016 Nurse visit Dottie Sanchez POTATO CHIP MAKER 08/31/2016 Nurse visit Dottie Sanchez POTATO CHIP MAKER 06/06/2016 Nurse visit Dottie Walker POTATO CHIP MAKER 03/07/2016 Office visit Dottie Walker POTATO CHIP MAKER 01/14/2016 Office visit Dottie Sanchez POTATO CHIP MAKER 12/18/2015 Office visit Dottie Sanchez POTATO CHIP MAKER 10/02/2015 Nurse visit Dottie Sanchez POTATO CHIP MAKER 07/08/2015 Nurse visit Dottie Walker POTATO CHIP MAKER 04/14/2015 Nurse visit Dottie Walker POTATO CHIP MAKER 01/14/2015 Nurse visit Dottie Sanchez POTATO CHIP MAKER 10/21/2014 Nurse visit Rhonda Parra POTATO CHIP MAKER 07/28/2014 Nurse visit Dottie Sanchez POTATO CHIP MAKER 05/08/2014 Nurse visit Alena Sanchez RESIDENT CARE AID 02/07/2014 Nurse visit Dottie Sanchez POTATO CHIP MAKER 11/22/2013 Nurse visit Dottie Walker POTATO CHIP MAKER 08/19/2013 Nurse visit Dottie Sanchez POTATO CHIP MAKER 05/24/2013 Nurse visit Dottie Sanchez POTATO CHIP MAKER 02/22/2013 Nurse visit Dottie Sanchez POTATO CHIP MAKER 01/04/2013 Office visit Dottie Sanchez POTATO CHIP MAKER 12/04/2012 Office visit Dottie Sanchez POTATO CHIP MAKER 02/14/2012 Office visit Dottie Sanchez POTATO CHIP MAKER 01/13/2012 Office visit Dottie Sanchez POTATO CHIP MAKER 12/15/2011 Office visit Dottie Sanchez POTATO CHIP MAKER
--- OUTSIDE RECORDS SUMMARY | 2019-04-19 16:55 | XMS REPORT ---
Author Author Dottie Sanchez [facility] Address [address] [place], [place] [phone] Care Team Providers Care Hand Button Splitter Name Role Phone Dottie Sanchez PCP Valentina Hardin PreferredProvider Allergies and Adverse Reactions Name Reaction Notes NO KNOWN DRUG ALLERGIES Plan of Treatment Planned Activity Comments Planned Date Planned Time Plan/Goal IM Injection 08/31/2016 12:00 AM Injection, Subcutaneous/IM 02/24/2017 12:00 AM Injection, Subcutaneous/IM 05/18/2017 12:00 AM Injection, Subcutaneous/IM 08/15/2017 12:00 AM Injection, Subcutaneous/IM 07/31/2018 12:00 AM Medications Name Start Date Expiration [...] HC BMI BSA BMI Percentile O2 Sat(%) 06/28/2018 3:28:00 PM 126 mmHg 72 mmHg [...] of injectable contraceptive Oct 24 2018 9:09AM Payers Insurance Name Company Name Plan Name Plan Number Policy Number Policy Group Number Start Date BCBS [facility] [place] [id number] Tuesday, 2014 [employer] [id number] Wednesday, 2010 History of Encounters Visit Date Visit Type Provider 10/23/2018 Nurse visit Dottie Sanchez LONGSHORE EQUIPMENT OPERATOR 07/30/2018 Nurse visit Dottie Sanchez LONGSHORE EQUIPMENT OPERATOR 06/28/2018 Office visit Valentina TravisPam Hardin LONGSHORE EQUIPMENT OPERATOR 05/03/2018 Nurse visit Dottie Sanchez LONGSHORE EQUIPMENT OPERATOR 02/07/2018 Nurse visit Dottie Sanchez LONGSHORE EQUIPMENT OPERATOR 11/09/2017 Nurse visit Fransico Downey MD 08/15/2017 Nurse visit Dottie Sanchez LONGSHORE EQUIPMENT OPERATOR 07/10/2017 Office visit Valentina Hardin LONGSHORE EQUIPMENT OPERATOR 05/18/2017 Nurse visit Dottie Sanchez LONGSHORE EQUIPMENT OPERATOR 02/24/2017 Nurse visit Dottie Sanchez LONGSHORE EQUIPMENT OPERATOR 11/30/2016 Nurse visit Dottie Sanchez LONGSHORE EQUIPMENT OPERATOR 08/31/2016 Nurse visit Dottie Sanchez LONGSHORE EQUIPMENT OPERATOR 06/06/2016 Nurse visit Dottie Sanchez LONGSHORE EQUIPMENT OPERATOR 03/07/2016 Office visit Dottie Sanchez LONGSHORE EQUIPMENT OPERATOR 01/14/2016 Office visit Dottie Sanchez LONGSHORE EQUIPMENT OPERATOR 12/18/2015 Office visit Dottie Sanchez LONGSHORE EQUIPMENT OPERATOR 10/02/2015 Nurse visit Dottie Sanchez LONGSHORE EQUIPMENT OPERATOR 07/08/2015 Nurse visit Dottie Sanchez LONGSHORE EQUIPMENT OPERATOR 04/14/2015 Nurse visit Dottie Sacnhez LONGSHORE EQUIPMENT OPERATOR 01/14/2015 Nurse visit Dottie Sanchez LONGSHORE EQUIPMENT OPERATOR 10/21/2014 Nurse visit Rhonda Parra LONGSHORE EQUIPMENT OPERATOR 07/28/2014 Nurse visit Dottie Sanchez LONGSHORE EQUIPMENT OPERATOR 05/08/2014 Nurse visit Alena Sanchez FRENCH PASTRY COOK 02/07/2014 Nurse visit Dottie Sanchez LONGSHORE EQUIPMENT OPERATOR 11/22/2013 Nurse visit Dottie Sanchez LONGSHORE EQUIPMENT OPERATOR 08/19/2013 Nurse visit Dottie Sanchez LONGSHORE EQUIPMENT OPERATOR 05/24/2013 Nurse visit Dottie Sanchez LONGSHORE EQUIPMENT OPERATOR 02/22/2013 Nurse visit Dottie Sanchez LONGSHORE EQUIPMENT OPERATOR 01/04/2013 Office visit Dottie Sanchez LONGSHORE EQUIPMENT OPERATOR 12/04/2012 Office visit Dottie Sanchez LONGSHORE EQUIPMENT OPERATOR 02/14/2012 Office visit Dottie Sanchez LONGSHORE EQUIPMENT OPERATOR 01/13/2012 Office visit Dottie Sanchez LONGSHORE EQUIPMENT OPERATOR 12/15/2011 Office visit Dottie Sanchez LONGSHORE EQUIPMENT OPERATOR
--- OUTSIDE RECORDS SUMMARY | 2019-04-19 16:56 | XMS REPORT ---
Author Author Dottie Sanchez [facility] Address [address] [place], [place] [id number] Care Team Providers Care Tin Container Straightener Name Role Phone Dottie Sanchez PCP Valentina Hardin PreferredProvider Allergies and Adverse Reactions Name Reaction Notes NO KNOWN DRUG ALLERGIES Plan of Treatment Planned Activity Comments Planned Date Planned Time Plan/Goal IM Injection 08/31/2016 12:00 AM Injection, Subcutaneous/IM 02/24/2017 12:00 AM Injection, Subcutaneous/IM 05/18/2017 12:00 AM Injection, Subcutaneous/IM 08/15/2017 12:00 AM Injection, Subcutaneous/IM 07/31/2018 12:00 AM Injection, Subcutaneous/IM 10/23/2018 12:00 AM Medications Name Start Date Expiration [...] Group Number Start Date BCBS B[employer] [place] [id number] Tuesday, 2014 [employer] [place] [employer] [place] [employer] [id number] Wednesday, 2010 History of Encounters Visit Date Visit Type Provider 10/23/2018 Nurse visit Dottie Sanchze MUNITIONS HANDLER SUPERVISOR 07/30/2018 Nurse visit Dottie Sanchez MUNITIONS HANDLER SUPERVISOR 06/28/2018 Office visit Valentina Hardin MUNITIONS HANDLER SUPERVISOR 05/03/2018 Nurse visit Dottie Sanchez MUNITIONS HANDLER SUPERVISOR 02/07/2018 Nurse visit Dottie Sanchez MUNITIONS HANDLER SUPERVISOR 11/09/2017 Nurse visit Fransico Downey MD 08/15/2017 Nurse visit Dottie Sanchez MUNITIONS HANDLER SUPERVISOR 07/10/2017 Office visit Valentina Hardin MUNITIONS HANDLER SUPERVISOR 05/18/2017 Nurse visit Dottie Sanchez MUNITIONS HANDLER SUPERVISOR 02/24/2017 Nurse visit Dottie Sanchez MUNITIONS HANDLER SUPERVISOR 11/30/2016 Nurse visit Dottie Sanchez MUNITIONS HANDLER SUPERVISOR 08/31/2016 Nurse visit Dottie Sanchez MUNITIONS HANDLER SUPERVISOR 06/06/2016 Nurse visit Dottie Sanchez MUNITIONS HANDLER SUPERVISOR 03/07/2016 Office visit Dottie Sanchez MUNITIONS HANDLER SUPERVISOR 01/14/2016 Office visit Dottie Sanchez MUNITIONS HANDLER SUPERVISOR 12/18/2015 Office visit Dottie Sanchez MUNITIONS HANDLER SUPERVISOR 10/02/2015 Nurse visit Dottie Sanchez MUNITIONS HANDLER SUPERVISOR 07/08/2015 Nurse visit Dottie Sanchez MUNITIONS HANDLER SUPERVISOR 04/14/2015 Nurse visit Dottie Sanchez MUNITIONS HANDLER SUPERVISOR 01/14/2015 Nurse visit Dottie Sanchez MUNITIONS HANDLER SUPERVISOR 10/21/2014 Nurse visit Rhonda Parra MUNITIONS HANDLER SUPERVISOR 07/28/2014 Nurse visit Dottie Sanchez MUNITIONS HANDLER SUPERVISOR 05/08/2014 Nurse visit Alena Sanchez SALES VICE PRESIDENT 02/07/2014 Nurse visit Dottie Sanchez MUNITIONS HANDLER SUPERVISOR 11/22/2013 Nurse visit Dottie Sanchez MUNITIONS HANDLER SUPERVISOR 08/19/2013 Nurse visit Dottie Sanchez MUNITIONS HANDLER SUPERVISOR 05/24/2013 Nurse visit Dottie Sanchez MUNITIONS HANDLER SUPERVISOR 02/22/2013 Nurse visit Dottie Sanchez MUNITIONS HANDLER SUPERVISOR 01/04/2013 Office visit Dottie Sanchez MUNITIONS HANDLER SUPERVISOR 12/04/2012 Office visit Dottie Sanchez MUNITIONS HANDLER SUPERVISOR 02/14/2012 Office visit Dottie Sanchez MUNITIONS HANDLER SUPERVISOR 01/13/2012 Office visit Dottie Sanchez MUNITIONS HANDLER SUPERVISOR 12/15/2011 Office visit Dottie Sanchez MUNITIONS HANDLER SUPERVISOR
--- OUTSIDE RECORDS SUMMARY | 2019-04-19 16:56 | XMS REPORT ---
Author Author Dottie Sanchez [facility] Address [address] [place], [place] [id number] Care Team Providers Care Professional Volleyball Player Name Role Phone Dottie Sanchez PCP Valentina Hardin PreferredProvider Allergies and Adverse Reactions Name Reaction Notes NO KNOWN DRUG ALLERGIES Plan of Treatment Planned Activity Comments Planned Date Planned Time Plan/Goal IM Injection 08/31/2016 12:00 AM Injection, Subcutaneous/IM 02/24/2017 12:00 AM Injection, Subcutaneous/IM 05/18/2017 12:00 AM Injection, Subcutaneous/IM 08/15/2017 12:00 AM Medications Name Start Date Expiration [...] of cervicothoracic region Jun 28 2018 3:30PM Payers Insurance Name Company Name Plan Name Plan Number Policy Number Policy Group Number Start Date BCBS [employer] [place] [id number] Tuesday, 2014 [place] [facility] [place] [facility] [id number] Wednesday, 2010 History of Encounters Visit Date Visit Type Provider 07/30/2018 Nurse visit Dottie Sanchez AIR POLLUTION CONTROL ENGINEER 06/28/2018 Office visit Valentina RoblesPam Hardin AIR POLLUTION CONTROL ENGINEER 05/03/2018 Nurse visit Dottei Daniel AIR POLLUTION CONTROL ENGINEER 02/07/2018 Nurse visit Dottie Daniel AIR POLLUTION CONTROL ENGINEER 11/09/2017 Nurse visit Fransico Downey MD 08/15/2017 Nurse visit Dottie Daniel AIR POLLUTION CONTROL ENGINEER 07/10/2017 Office visit Valentina Hardin AIR POLLUTION CONTROL ENGINEER 05/18/2017 Nurse visit Dottie Walker AIR POLLUTION CONTROL ENGINEER 02/24/2017 Nurse visit Dottie Walker AIR POLLUTION CONTROL ENGINEER 11/30/2016 Nurse visit Dottie Walker AIR POLLUTION CONTROL ENGINEER 08/31/2016 Nurse visit Dottie Sanchez AIR POLLUTION CONTROL ENGINEER 06/06/2016 Nurse visit Dottie Daniel AIR POLLUTION CONTROL ENGINEER 03/07/2016 Office visit Dottie Walker AIR POLLUTION CONTROL ENGINEER 01/14/2016 Office visit Dottie Daniel AIR POLLUTION CONTROL ENGINEER 12/18/2015 Office visit Dottie Walker AIR POLLUTION CONTROL ENGINEER 10/02/2015 Nurse visit Dottie Walker AIR POLLUTION CONTROL ENGINEER 07/08/2015 Nurse visit Dottie Sanchez AIR POLLUTION CONTROL ENGINEER 04/14/2015 Nurse visit Dottie Walker AIR POLLUTION CONTROL ENGINEER 01/14/2015 Nurse visit Dottie Daniel AIR POLLUTION CONTROL ENGINEER 10/21/2014 Nurse visit Rhonda Parra AIR POLLUTION CONTROL ENGINEER 07/28/2014 Nurse visit Dottie Daniel AIR POLLUTION CONTROL ENGINEER 05/08/2014 Nurse visit Alena Sanchez SIDE LASTER TACK 02/07/2014 Nurse visit Dottie Daniel AIR POLLUTION CONTROL ENGINEER 11/22/2013 Nurse visit Dottie Walker AIR POLLUTION CONTROL ENGINEER 08/19/2013 Nurse visit Dottie Walker AIR POLLUTION CONTROL ENGINEER 05/24/2013 Nurse visit Dottie Walker AIR POLLUTION CONTROL ENGINEER 02/22/2013 Nurse visit Dottie Walker AIR POLLUTION CONTROL ENGINEER 01/04/2013 Office visit Dottie Walker AIR POLLUTION CONTROL ENGINEER 12/04/2012 Office visit Dottie Walker AIR POLLUTION CONTROL ENGINEER 02/14/2012 Office visit Dottie Walker AIR POLLUTION CONTROL ENGINEER 01/13/2012 Office visit Dottie Walker AIR POLLUTION CONTROL ENGINEER 12/15/2011 Office visit Dottie Sanchez AIR POLLUTION CONTROL ENGINEER
--- OUTSIDE RECORDS SUMMARY | 2019-04-19 16:56 | XMS REPORT ---
Author Author Dottie Sanchez [facility] Address [address] [place], [place] [id number] Care Team Providers Care Pool Servicer Name Role Phone Dottie Sanchez PCP Valentina [...] of injectable contraceptive Jul 30 2018 5:18PM Payers Insurance Name Company Name Plan Name Plan Number Policy Number Policy Group Number Start Date [id number] Tuesday, 2014 [place] [facility] [place] [facility] [id number] Wednesday, 2010 History of Encounters Visit Date Visit Type Provider 07/30/2018 Nurse visit Dottie Sanchez DATA CENTER SOLUTIONS ARCHITECT 06/28/2018 Office visit Valentina Poon Andrésscottmarce DATA CENTER SOLUTIONS ARCHITECT 05/03/2018 Nurse visit Dottie Sanchez DATA CENTER SOLUTIONS ARCHITECT 02/07/2018 Nurse visit Dottie Sanchez DATA CENTER SOLUTIONS ARCHITECT 11/09/2017 Nurse visit Fransico Downey MD 08/15/2017 Nurse visit Dottie Daniel DATA CENTER SOLUTIONS ARCHITECT 07/10/2017 Office visit Valentina RoblesPam Hardin DATA CENTER SOLUTIONS ARCHITECT 05/18/2017 Nurse visit Dottie Sanchez DATA CENTER SOLUTIONS ARCHITECT 02/24/2017 Nurse visit Dottie Sanchez DATA CENTER SOLUTIONS ARCHITECT 11/30/2016 Nurse visit Dottie Sanchez DATA CENTER SOLUTIONS ARCHITECT 08/31/2016 Nurse visit Dottie Sanchez DATA CENTER SOLUTIONS ARCHITECT 06/06/2016 Nurse visit Dottie Sanchez DATA CENTER SOLUTIONS ARCHITECT 03/07/2016 Office visit Dottie Sanchez DATA CENTER SOLUTIONS ARCHITECT 01/14/2016 Office visit Dottie Sanchez DATA CENTER SOLUTIONS ARCHITECT 12/18/2015 Office visit Dottie Sanchez DATA CENTER SOLUTIONS ARCHITECT 10/02/2015 Nurse visit Dottie Sanchez DATA CENTER SOLUTIONS ARCHITECT 07/08/2015 Nurse visit Dottie Walker DATA CENTER SOLUTIONS ARCHITECT 04/14/2015 Nurse visit Dottie Sanchez DATA CENTER SOLUTIONS ARCHITECT 01/14/2015 Nurse visit Dottie Sanchez DATA CENTER SOLUTIONS ARCHITECT 10/21/2014 Nurse visit Rhonda Parra DATA CENTER SOLUTIONS ARCHITECT 07/28/2014 Nurse visit Dottie Sanchez DATA CENTER SOLUTIONS ARCHITECT 05/08/2014 Nurse visit Alena Daniel SAFETY SEALER 02/07/2014 Nurse visit Dottie Sanchez DATA CENTER SOLUTIONS ARCHITECT 11/22/2013 Nurse visit Dottie Sanchez DATA CENTER SOLUTIONS ARCHITECT 08/19/2013 Nurse visit Dottie Sanchez DATA CENTER SOLUTIONS ARCHITECT 05/24/2013 Nurse visit Dottie Sanchez DATA CENTER SOLUTIONS ARCHITECT 02/22/2013 Nurse visit Dottie Walker DATA CENTER SOLUTIONS ARCHITECT 01/04/2013 Office visit Dottie Walker DATA CENTER SOLUTIONS ARCHITECT 12/04/2012 Office visit Dottie Walker DATA CENTER SOLUTIONS ARCHITECT 02/14/2012 Office visit Dottie Walker DATA CENTER SOLUTIONS ARCHITECT 01/13/2012 Office visit Dottie Walker DATA CENTER SOLUTIONS ARCHITECT 12/15/2011 Office visit Dottie Sanchez DATA CENTER SOLUTIONS ARCHITECT
--- OUTSIDE RECORDS SUMMARY | 2019-04-19 16:57 | XMS REPORT ---
Author Author Valentina Hardin [facility] Address [address] [place], [place] [id number] Care Team Providers Care Aviation Mechanic Name Role Phone Valentina Hardin PCP [...] Number Policy Group Number Start Date BCBS B[employer] [place] [id number] Tuesday, 2014 [place] [employer] [facility] [place] [facility] [id number] Wednesday, 2010 History of Encounters Visit Date Visit Type Provider 06/28/2018 Office visit Valentina Cleve Hardin ARBORIST 05/03/2018 Nurse visit Dottie Daniel ARBORIST 02/07/2018 Nurse visit Dottie Daniel ARBORIST 11/09/2017 Nurse visit Fransico Downey MD 08/15/2017 Nurse visit Dottie Daniel ARBORIST 07/10/2017 Office visit Valentina Hardin ARBORIST 05/18/2017 Nurse visit Dottie Daniel ARBORIST 02/24/2017 Nurse visit Dottie Walker ARBORIST 11/30/2016 Nurse visit Dottie Walker ARBORIST 08/31/2016 Nurse visit Dottie Walker ARBORIST 06/06/2016 Nurse visit Dottie Walker ARBORIST 03/07/2016 Office visit Dottie Daniel ARBORIST 01/14/2016 Office visit Dottie Walker ARBORIST 12/18/2015 Office visit Dottie Walker ARBORIST 10/02/2015 Nurse visit Dottie Walker ARBORIST 07/08/2015 Nurse visit Dottie Walker ARBORIST 04/14/2015 Nurse visit Dottie Daniel ARBORIST 01/14/2015 Nurse visit Dottie Daniel ARBORIST 10/21/2014 Nurse visit Rhonda Parra ARBORIST 07/28/2014 Nurse visit Dottie Daniel ARBORIST 05/08/2014 Nurse visit Alena Daniel STUDENT LIAISON OFFICER 02/07/2014 Nurse visit Dottie Sanchez ARBORIST 11/22/2013 Nurse visit Dottie Walker ARBORIST 08/19/2013 Nurse visit Dottie Walker ARBORIST 05/24/2013 Nurse visit Dottie Walker ARBORIST 02/22/2013 Nurse visit Dottie Walker ARBORIST 01/04/2013 Office visit Dottie Walker ARBORIST 12/04/2012 Office visit Dottie Walker ARBORIST 02/14/2012 Office visit Dottie Walker ARBORIST 01/13/2012 Office visit Dottie Walker ARBORIST 12/15/2011 Office visit Dottie Sanchez ARBORIST
--- OUTSIDE RECORDS SUMMARY | 2019-04-19 16:57 | XMS REPORT ---
Author Author Dottie Sanchez [facility] Address [address] [place], [place] [id number] Care Team Providers Care Seed Packer Name Role Phone Dottie Sanchez PCP Valentina [...] rpm 97.8 F 179.5 lbs 68 in 27.2926 kg/m 1.9765 m 100 % 03/07/2016 1:55:00 PM 142 mmHg [...] of injectable contraceptive May 03 2018 12:11PM Payers Insurance Name Company Name Plan Name Plan Number Policy Number Policy Group Number Start Date BCBS Bcbs Of [place] [id number] Tuesday, 2014 [facility] [id number] Wednesday, 2010 History of Encounters Visit Date Visit Type Provider 05/03/2018 Nurse visit Dottie Sanchez JUSTICE COURT JUDGE 02/07/2018 Nurse visit Dottie Sanchez JUSTICE COURT JUDGE 11/09/2017 Nurse visit Fransico Downey MD 08/15/2017 Nurse visit Dottie Sanchez JUSTICE COURT JUDGE 07/10/2017 Office visit Valentina Hardin JUSTICE COURT JUDGE 05/18/2017 Nurse visit Dottie Walker JUSTICE COURT JUDGE 02/24/2017 Nurse visit Dottie Walker JUSTICE COURT JUDGE 11/30/2016 Nurse visit Dottie Walker JUSTICE COURT JUDGE 08/31/2016 Nurse visit Dottie Walker JUSTICE COURT JUDGE 06/06/2016 Nurse visit Dottie Walker JUSTICE COURT JUDGE 03/07/2016 Office visit Dottie Walker JUSTICE COURT JUDGE 01/14/2016 Office visit Dottie Walker JUSTICE COURT JUDGE 12/18/2015 Office visit Dottie Walker JUSTICE COURT JUDGE 10/02/2015 Nurse visit Dottie Walker JUSTICE COURT JUDGE 07/08/2015 Nurse visit Dottie Walker JUSTICE COURT JUDGE 04/14/2015 Nurse visit Dottie Walker JUSTICE COURT JUDGE 01/14/2015 Nurse visit Dottie Walker JUSTICE COURT JUDGE 10/21/2014 Nurse visit Rhonda Parra JUSTICE COURT JUDGE 07/28/2014 Nurse visit Dottie Walker JUSTICE COURT JUDGE 05/08/2014 Nurse visit Alena Sanchez SERVICE PLANNER 02/07/2014 Nurse visit Dottie Walker JUSTICE COURT JUDGE 11/22/2013 Nurse visit Dottie Walker JUSTICE COURT JUDGE 08/19/2013 Nurse visit Dottie Walker JUSTICE COURT JUDGE 05/24/2013 Nurse visit Dottie Walker JUSTICE COURT JUDGE 02/22/2013 Nurse visit Dottie Walker JUSTICE COURT JUDGE 01/04/2013 Office visit Dottie Walker JUSTICE COURT JUDGE 12/04/2012 Office visit Dottie Walker JUSTICE COURT JUDGE 02/14/2012 Office visit Dottie Walker JUSTICE COURT JUDGE 01/13/2012 Office visit Dottie Walker JUSTICE COURT JUDGE 12/15/2011 Office visit Dottie Walker JUSTICE COURT JUDGE
--- OUTSIDE RECORDS SUMMARY | 2019-04-19 16:58 | XMS REPORT ---
Author Author Dottie Sanchez [facility] Address [address] [place], [place] [phone] Care Team Providers Care Plant And Maintenance Technician Name Role Phone Dottie Sanchez PCP Valentina [...] Group Number Start Date BCBS Bcbs Of [place] [id number] Tuesday, 2014 [employer] [facility] [id number] Wednesday, 2010 History of Encounters Visit Date Visit Type Provider 05/03/2018 Nurse visit Dottie Sanchez HAZARDOUS WASTE MANAGEMENT SPECIALIST 02/07/2018 Nurse visit Dottie Sanchez HAZARDOUS WASTE MANAGEMENT SPECIALIST 11/09/2017 Nurse visit Fransico Downey MD 08/15/2017 Nurse visit Dottie Sanchez HAZARDOUS WASTE MANAGEMENT SPECIALIST 07/10/2017 Office visit Valentina Hardin HAZARDOUS WASTE MANAGEMENT SPECIALIST 05/18/2017 Nurse visit Dottie Walker HAZARDOUS WASTE MANAGEMENT SPECIALIST 02/24/2017 Nurse visit Dottie Walker HAZARDOUS WASTE MANAGEMENT SPECIALIST 11/30/2016 Nurse visit Dottie Walker HAZARDOUS WASTE MANAGEMENT SPECIALIST 08/31/2016 Nurse visit Dottie Walker HAZARDOUS WASTE MANAGEMENT SPECIALIST 06/06/2016 Nurse visit Dottie Walker HAZARDOUS WASTE MANAGEMENT SPECIALIST 03/07/2016 Office visit Dottie Walker HAZARDOUS WASTE MANAGEMENT SPECIALIST 01/14/2016 Office visit Dottie Walker HAZARDOUS WASTE MANAGEMENT SPECIALIST 12/18/2015 Office visit Dottie Walker HAZARDOUS WASTE MANAGEMENT SPECIALIST 10/02/2015 Nurse visit Dottie Walker HAZARDOUS WASTE MANAGEMENT SPECIALIST 07/08/2015 Nurse visit Dottie Walker HAZARDOUS WASTE MANAGEMENT SPECIALIST 04/14/2015 Nurse visit Dottie Walker HAZARDOUS WASTE MANAGEMENT SPECIALIST 01/14/2015 Nurse visit Dottie Walker HAZARDOUS WASTE MANAGEMENT SPECIALIST 10/21/2014 Nurse visit Rhonda Parra HAZARDOUS WASTE MANAGEMENT SPECIALIST 07/28/2014 Nurse visit Dottie Walker HAZARDOUS WASTE MANAGEMENT SPECIALIST 05/08/2014 Nurse visit Alena Sanchez LIVESTOCK YARD SUPERVISOR 02/07/2014 Nurse visit Dottie Walker HAZARDOUS WASTE MANAGEMENT SPECIALIST 11/22/2013 Nurse visit Dottie Walker HAZARDOUS WASTE MANAGEMENT SPECIALIST 08/19/2013 Nurse visit Dottie Walker HAZARDOUS WASTE MANAGEMENT SPECIALIST 05/24/2013 Nurse visit Dottie Walker HAZARDOUS WASTE MANAGEMENT SPECIALIST 02/22/2013 Nurse visit Dottie Walker HAZARDOUS WASTE MANAGEMENT SPECIALIST 01/04/2013 Office visit Dottie Walker HAZARDOUS WASTE MANAGEMENT SPECIALIST 12/04/2012 Office visit Dottie Walker HAZARDOUS WASTE MANAGEMENT SPECIALIST 02/14/2012 Office visit Dottie Walker HAZARDOUS WASTE MANAGEMENT SPECIALIST 01/13/2012 Office visit Dottie Walker HAZARDOUS WASTE MANAGEMENT SPECIALIST 12/15/2011 Office visit Dottie Walker HAZARDOUS WASTE MANAGEMENT SPECIALIST
--- OUTSIDE RECORDS SUMMARY | 2019-04-19 16:59 | XMS REPORT ---
Author Author Dottie Sanchez [facility] Address [address] [place], [place] [phone] Care Team Providers Care Ems Educator Name Role Phone Dottie Sanchez PCP Valentina [...] of injectable contraceptive Feb 07 2018 4:27PM Payers Insurance Name Company Name Plan Name Plan Number Policy Number Policy Group Number Start Date BCBS [facility] [id number] Tuesday, 2014 [employer] [facility] [id number] Wednesday, 2010 History of Encounters Visit Date Visit Type Provider 02/07/2018 Nurse visit Dottie Sanchez STERILE INSTRUMENT TECHNICIAN 11/09/2017 Nurse visit Fransico Downey MD 08/15/2017 Nurse visit Dottie Sanchez STERILE INSTRUMENT TECHNICIAN 07/10/2017 Office visit Valentina Hardin STERILE INSTRUMENT TECHNICIAN 05/18/2017 Nurse visit Dottie Sanchez STERILE INSTRUMENT TECHNICIAN 02/24/2017 Nurse visit Dottie Sanchez STERILE INSTRUMENT TECHNICIAN 11/30/2016 Nurse visit Dottie Sanchez STERILE INSTRUMENT TECHNICIAN 08/31/2016 Nurse visit Dottie Sanchez STERILE INSTRUMENT TECHNICIAN 06/06/2016 Nurse visit Dottie Sanchez STERILE INSTRUMENT TECHNICIAN 03/07/2016 Office visit Dottie Sanchez STERILE INSTRUMENT TECHNICIAN 01/14/2016 Office visit Dottie Sanchez STERILE INSTRUMENT TECHNICIAN 12/18/2015 Office visit Dottie Sanchez STERILE INSTRUMENT TECHNICIAN 10/02/2015 Nurse visit Dottie Sanchez STERILE INSTRUMENT TECHNICIAN 07/08/2015 Nurse visit Dottie Sanchez STERILE INSTRUMENT TECHNICIAN 04/14/2015 Nurse visit Dottie Sanchez STERILE INSTRUMENT TECHNICIAN 01/14/2015 Nurse visit Dottie Sanchez STERILE INSTRUMENT TECHNICIAN 10/21/2014 Nurse visit Rhonda Parra STERILE INSTRUMENT TECHNICIAN 07/28/2014 Nurse visit Dottie Sanchez STERILE INSTRUMENT TECHNICIAN 05/08/2014 Nurse visit Alena Sanchez COURTESY VAN DRIVER 02/07/2014 Nurse visit Dottie Sanchez STERILE INSTRUMENT TECHNICIAN 11/22/2013 Nurse visit Dottie Sanchez STERILE INSTRUMENT TECHNICIAN 08/19/2013 Nurse visit Dottie Sanchez STERILE INSTRUMENT TECHNICIAN 05/24/2013 Nurse visit Dottie Sanchez STERILE INSTRUMENT TECHNICIAN 02/22/2013 Nurse visit Dottie Sanchez STERILE INSTRUMENT TECHNICIAN 01/04/2013 Office visit Dottie Sanchez STERILE INSTRUMENT TECHNICIAN 12/04/2012 Office visit Dottie Sanchez STERILE INSTRUMENT TECHNICIAN 02/14/2012 Office visit Dottie Sanchez STERILE INSTRUMENT TECHNICIAN 01/13/2012 Office visit Dottie Sanchez STERILE INSTRUMENT TECHNICIAN 12/15/2011 Office visit Dottie Sanchez STERILE INSTRUMENT TECHNICIAN
--- OUTSIDE RECORDS SUMMARY | 2019-04-19 17:00 | XMS REPORT ---
Author Author Fransico Downey [facility] Address [address] [place], [place] [address] Care Team Providers Care Business Support Coordinator Name Role Phone Fransico Downey PCP Valentina Hardin Catherine PreferredProvider Allergies and Adverse Reactions Name Reaction [...] of injectable contraceptive Nov 09 2017 4:04PM Payers Insurance Name Company Name Plan Name Plan Number Policy Number Policy Group Number Start Date [facility] [id number] Tuesday, 2014 [place] [facility] [facility] [id number] Wednesday, 2010 History of Encounters Visit Date Visit Type Provider 11/09/2017 Nurse visit Fransico Downey MD 08/15/2017 Nurse visit Dottie Sanchez BAG MAKING MACHINE TENDER 07/10/2017 Office visit Valentina Hardin BAG MAKING MACHINE TENDER 05/18/2017 Nurse visit Dottie Sanchez BAG MAKING MACHINE TENDER 02/24/2017 Nurse visit Dottie Sanchez BAG MAKING MACHINE TENDER 11/30/2016 Nurse visit Dottie Sanchez BAG MAKING MACHINE TENDER 08/31/2016 Nurse visit Dottie Sanchez BAG MAKING MACHINE TENDER 06/06/2016 Nurse visit Dottie Sanchez BAG MAKING MACHINE TENDER 03/07/2016 Office visit Dottie Sanchez BAG MAKING MACHINE TENDER 01/14/2016 Office visit Dottie Sanchez BAG MAKING MACHINE TENDER 12/18/2015 Office visit Dottie Sanchez BAG MAKING MACHINE TENDER 10/02/2015 Nurse visit Dottie Sanchez BAG MAKING MACHINE TENDER 07/08/2015 Nurse visit Dottie Sanchez BAG MAKING MACHINE TENDER 04/14/2015 Nurse visit Dottie Sanchez BAG MAKING MACHINE TENDER 01/14/2015 Nurse visit Dottie Sanchez BAG MAKING MACHINE TENDER 10/21/2014 Nurse visit Rhonda Parra BAG MAKING MACHINE TENDER 07/28/2014 Nurse visit Dottie Sanchez BAG MAKING MACHINE TENDER 05/08/2014 Nurse visit Alena Sanchez CHIEF LOCK TENDER OPERATOR 02/07/2014 Nurse visit Dottie Sanchez BAG MAKING MACHINE TENDER 11/22/2013 Nurse visit Dottie Sanchez BAG MAKING MACHINE TENDER 08/19/2013 Nurse visit Dottie Sanchez BAG MAKING MACHINE TENDER 05/24/2013 Nurse visit Dottie Sanchez BAG MAKING MACHINE TENDER 02/22/2013 Nurse visit Dottie Sancehz BAG MAKING MACHINE TENDER 01/04/2013 Office visit Dottie Sanchez BAG MAKING MACHINE TENDER 12/04/2012 Office visit Dottie Sanchez BAG MAKING MACHINE TENDER 02/14/2012 Office visit Dottie Sanchez BAG MAKING MACHINE TENDER 01/13/2012 Office visit Dottie Sanchez BAG MAKING MACHINE TENDER 12/15/2011 Office visit Dottie Sanchez BAG MAKING MACHINE TENDER
--- OUTSIDE RECORDS SUMMARY | 2019-04-19 17:00 | XMS REPORT ---
Author Author Dottie Sanchez [facility] Address [address] [place], [place] [phone] Care Team Providers Care Sill Worker Name Role Phone Dottie Sanchez PCP Valentina [...] Number Policy Group Number Start Date [facility]BS [facility] [id number] Tuesday, October 28, 2014 [place] [facility] [facility] [id number] Wednesday, July 14, 2010 History of Encounters Visit Date Visit Type Provider 02/07/2018 Nurse visit Dottie Sanchez MAT MAKING MACHINE TENDER 11/09/2017 Nurse visit Fransico Downey MD 08/15/2017 Nurse visit Dottie Sanchez MAT MAKING MACHINE TENDER 07/10/2017 Office visit Valentina Hardin MAT MAKING MACHINE TENDER 05/18/2017 Nurse visit Dottie Sanchez MAT MAKING MACHINE TENDER 02/24/2017 Nurse visit Dottie Sanchez MAT MAKING MACHINE TENDER 11/30/2016 Nurse visit Dottie Sanchez MAT MAKING MACHINE TENDER 08/31/2016 Nurse visit Dottie Sanchez MAT MAKING MACHINE TENDER 06/06/2016 Nurse visit Dottie Sanchez MAT MAKING MACHINE TENDER 03/07/2016 Office visit Dottie Sanchez MAT MAKING MACHINE TENDER 01/14/2016 Office visit Dottie Sanchez MAT MAKING MACHINE TENDER 12/18/2015 Office visit Dottie Sanchez MAT MAKING MACHINE TENDER 10/02/2015 Nurse visit Dottie Sanchez MAT MAKING MACHINE TENDER 07/08/2015 Nurse visit Dottie Sanchez MAT MAKING MACHINE TENDER 04/14/2015 Nurse visit Dottie Sanchez MAT MAKING MACHINE TENDER 01/14/2015 Nurse visit Dottie Sanchez MAT MAKING MACHINE TENDER 10/21/2014 Nurse visit Rhonda Parra MAT MAKING MACHINE TENDER 07/28/2014 Nurse visit Dottie Sanchez MAT MAKING MACHINE TENDER 05/08/2014 Nurse visit Alena Sanchez UTILITIES AND MAINTENANCE SUPERVISOR 02/07/2014 Nurse visit Dottie Sanchez MAT MAKING MACHINE TENDER 11/22/2013 Nurse visit Dottie Sanchez MAT MAKING MACHINE TENDER 08/19/2013 Nurse visit Dottie Sanchez MAT MAKING MACHINE TENDER 05/24/2013 Nurse visit Dottie Sanchez MAT MAKING MACHINE TENDER 02/22/2013 Nurse visit Dottie Sanchez MAT MAKING MACHINE TENDER 01/04/2013 Office visit Dottie Sanchez MAT MAKING MACHINE TENDER 12/04/2012 Office visit Dottie Sanchez MAT MAKING MACHINE TENDER 02/14/2012 Office visit Dottie Sanchez MAT MAKING MACHINE TENDER 01/13/2012 Office visit Dottie Sanchez MAT MAKING MACHINE TENDER 12/15/2011 Office visit Dottie Sanchez MAT MAKING MACHINE TENDER
--- OUTSIDE RECORDS SUMMARY | 2019-04-19 17:01 | XMS REPORT ---
Author Author Farnsico Downey [facility] Address [address] [place], [place] [id number] Care Team Providers Care Dental Laboratory Technician Name Role Phone Fransico Downey PCP Valentina [...] Policy Number Policy Group Number Start Date [facility] [id number] Tuesday, 2014 [facility] [id number] Wednesday, 2010 History of Encounters Visit Date Visit Type Provider 11/09/2017 Nurse visit Fransico Downey MD 08/15/2017 Nurse visit Dottie Sanchez HOPPER FEEDER 07/10/2017 Office visit Valentina Hardin HOPPER FEEDER 05/18/2017 Nurse visit Dottie Sanchez HOPPER FEEDER 02/24/2017 Nurse visit Dottie Sanchez HOPPER FEEDER 11/30/2016 Nurse visit Dottie Sanchez HOPPER FEEDER 08/31/2016 Nurse visit Dottie Sanchez HOPPER FEEDER 06/06/2016 Nurse visit Dottie Sanchez HOPPER FEEDER 03/07/2016 Office visit Dottie Sanchez HOPPER FEEDER 01/14/2016 Office visit Dottie Sanchez HOPPER FEEDER 12/18/2015 Office visit Dottie Sanchez HOPPER FEEDER 10/02/2015 Nurse visit Dottie Sanchez HOPPER FEEDER 07/08/2015 Nurse visit Dottie Sanchez HOPPER FEEDER 04/14/2015 Nurse visit Dottie Sanchez HOPPER FEEDER 01/14/2015 Nurse visit Dottie Sanchez HOPPER FEEDER 10/21/2014 Nurse visit Rhonda Parra HOPPER FEEDER 07/28/2014 Nurse visit Dottie Sanchez HOPPER FEEDER 05/08/2014 Nurse visit Alena Sanchez EXCHANGE OPERATOR 02/07/2014 Nurse visit Dottie Sanchez HOPPER FEEDER 11/22/2013 Nurse visit Dottie Sanchez HOPPER FEEDER 08/19/2013 Nurse visit Dottie Sanchez HOPPER FEEDER 05/24/2013 Nurse visit Dottie Sanchez HOPPER FEEDER 02/22/2013 Nurse visit Dottie Sanchez HOPPER FEEDER 01/04/2013 Office visit Dottie Sanchez HOPPER FEEDER 12/04/2012 Office visit Dottie Sanchez HOPPER FEEDER 02/14/2012 Office visit Dottie Sanchez HOPPER FEEDER 01/13/2012 Office visit Dottie Sanchez HOPPER FEEDER 12/15/2011 Office visit Dottie Sanchez HOPPER FEEDER
--- OUTSIDE RECORDS SUMMARY | 2019-04-19 17:03 | XMS REPORT | Continuity of Care Document ---
Author Organization Unknown Address Unknown Allergies Active Description Code Type Severity Reaction Onset Reported/Identified Relationship to Patient Clinical Status Yes No Known Drug Allergies [id number] Drug Allergy Unknown N/A 04/10/2019 Medications There is no data. Problems Date Dx Coded Attending Type Code Diagnosis Diagnosed By 11/01/2014 FLOWER PACE MD Ot V76.12 11/19/2014 SANJEEV CARRASCO, FLOWER Rasmussen Ot V76.12 11/26/2015 Ot V76.12 11/26/2015 FLOWER PACE MD Ot V76.12 11/26/2015 FLOWER PACE MD Ot V76.12 12/30/2016 Ot V76.12 OTH SCREEN MAMMO- MALIGN NEOPLASM OF ROSENDA 12/30/2016 FLOWER PACE MD Ot V76.12 OTH SCREEN MAMMO-MALIGN NEOPLASM OF ROSENDA 12/30/2016 FLOWER PACE MD Ot V76.12 OTH SCREEN MAMMO-MALIGN NEOPLASM OF ROSENDA 12/30/2016 FLOWER PACE MD Ot Z12.31 ENCNTR SCREEN MAMMOGRAM FOR MALIGNANT NE 01/02/2017 Ot V76.12 OTH SCREEN MAMMO- MALIGN NEOPLASM OF ROSENDA 01/02/2017 FLOWER PACE MD Ot V76.12 OTH SCREEN MAMMO-MALIGN NEOPLASM OF ROSENDA 01/02/2017 FLOWER PACE MD Ot V76.12 OTH SCREEN MAMMO-MALIGN NEOPLASM OF ROSENDA 01/02/2017 FLOWER PACE MD Ot Z12.31 ENCNTR SCREEN MAMMOGRAM FOR MALIGNANT NE 01/03/2017 FLOWER PACE MD Ot Z12.31 ENCNTR SCREEN MAMMOGRAM FOR MALIGNANT NE 01/18/2017 FLOWER PACE MD Ot Z12.31 ENCNTR SCREEN MAMMOGRAM FOR MALIGNANT NE 09/15/2017 ROBEL CARRASCO, MARISABEL Ulloa Ot Z01.818 ENCOUNTER FOR OTHER PREPROCEDURAL EXAMIN 09/15/2017 MARISABEL HUSTON MD Ot Z12.11 ENCOUNTER FOR SCREENING FOR MALIGNANT NE 09/15/2017 MARISABEL HUSTON MD Ot Z80.0 FAMILY HISTORY OF MALIGNANT NEOPLASM OF 09/15/2017 ROBEL CARRASCO, MARISABEL Ulloa Ot Z01.818 ENCOUNTER FOR OTHER PREPROCEDURAL EXAMIN 09/15/2017 MARISABEL HUSTON MD Ot Z12.11 ENCOUNTER FOR SCREENING FOR MALIGNANT NE 09/15/2017 MARISABEL HUSTON MD Ot Z80.0 FAMILY HISTORY OF MALIGNANT NEOPLASM OF 09/19/2017 Ot V76.12 OTH SCREEN MAMMO- MALIGN NEOPLASM OF ROSENDA 09/19/2017 FLOWER PACE MD Ot V76.12 OTH SCREEN MAMMO-MALIGN NEOPLASM OF ROSENDA 09/19/2017 FLOWER PACE MD Ot V76.12 OTH SCREEN MAMMO-MALIGN NEOPLASM OF ROSENDA 09/19/2017 FLOWER PACE MD Ot Z12.31 ENCNTR SCREEN MAMMOGRAM FOR MALIGNANT NE 09/19/2017 FLOWER PACE MD Ot Z12.31 ENCNTR SCREEN MAMMOGRAM FOR MALIGNANT NE 09/19/2017 Ot V76.12 OTH SCREEN MAMMO- MALIGN NEOPLASM OF ROSENDA 09/19/2017 FLOWER PACE MD Ot V76.12 OTH SCREEN MAMMO-MALIGN NEOPLASM OF ROSENDA 09/19/2017 FLOWER PACE MD Ot V76.12 OTH SCREEN MAMMO-MALIGN NEOPLASM OF ROSENDA 09/19/2017 FLOWER PACE MD Ot Z12.31 ENCNTR SCREEN MAMMOGRAM FOR MALIGNANT NE 09/19/2017 FLOWER PACE MD Ot Z12.31 ENCNTR SCREEN MAMMOGRAM FOR MALIGNANT NE 09/22/2017 Ot V76.12 OTH SCREEN MAMMO- MALIGN NEOPLASM OF ROSENDA 09/22/2017 FLOWER PACE MD Ot V76.12 OTH SCREEN MAMMO-MALIGN NEOPLASM OF ROSENDA 09/22/2017 FLOWER PACE MD Ot V76.12 OTH SCREEN MAMMO-MALIGN NEOPLASM OF ROSENDA 09/22/2017 FLOWER PACE MD, Ot Z12.31 ENCNTR SCREEN MAMMOGRAM FOR MALIGNANT NE 09/22/2017 FLOWER PACE MD, Ot Z12.31 ENCNTR SCREEN MAMMOGRAM FOR MALIGNANT NE 09/22/2017 MARISABEL HUSTON MD, Ot K63.5 POLYP OF COLON 09/22/2017 MARISABEL HUSTON MD, Ot Z12.11 ENCOUNTER FOR SCREENING FOR MALIGNANT NE 09/22/2017 MARISABEL HUSTON MD, Ot Z80.0 FAMILY HISTORY OF MALIGNANT NEOPLASM OF 09/24/2017 JOSE STARK MD Ot K62.5 HEMORRHAGE OF ANUS AND RECTUM 09/24/2017 JOSE STARK MD Ot K91.840 POSTPROC HEMOR OF A DGSTV SYS ORG FOL A 09/24/2017 JOSE STARK MD Ot Z86.010 PERSONAL HISTORY OF COLONIC POLYPS 09/24/2017 JOSE STARK MD Ot Z98.890 OTHER SPECIFIED POSTPROCEDURAL STATES 09/28/2017 MARISABEL HUSTON MD, Ot K63.5 POLYP OF COLON 09/28/2017 MARISABEL HUSTON MD, Ot Z12.11 ENCOUNTER FOR SCREENING FOR MALIGNANT NE 09/28/2017 MARISABEL HUSTON MD, Ot Z80.0 FAMILY HISTORY OF MALIGNANT NEOPLASM OF 01/05/2018 FLOWER PACE MD, Ot Z12.31 ENCNTR SCREEN MAMMOGRAM FOR MALIGNANT NE 01/22/2018 FLOWER PACE MD, Ot Z12.31 ENCNTR SCREEN MAMMOGRAM FOR MALIGNANT NE 03/12/2019 FLOWER PACE MD, Ot Z12.31 ENCNTR SCREEN MAMMOGRAM FOR MALIGNANT NE 04/10/2019 FLOWER PACE MD, Ot Z01.818 ENCOUNTER FOR OTHER PREPROCEDURAL EXAMIN 04/12/2019 FLOWER PACE MD, Ot Z01.818 ENCOUNTER FOR OTHER PREPROCEDURAL EXAMIN Procedures There is no data. Results Test Result Range Urine beta human chorionic gonadotropin (hCG) measurement - 09/22/17 08:00 Urine beta human chorionic gonadotropin (hCG) measurement NEGATIVE NEGATIVE Complete blood count (CBC) with automated white blood cell (WBC) differential - 09/24/17 19:05 Blood leukocytes automated count (number/volume) 9.9 10*3/uL 4.3-11.0 Blood erythrocytes automated count (number/volume) 4.56 10*6/uL 4.35-5.85 Venous blood hemoglobin measurement (mass/volume) 14.3 g/dL 11.5-16.0 Blood hematocrit (volume fraction) 41 % 35-52 Automated erythrocyte mean corpuscular volume 90 [foz_us] 80-99 Automated erythrocyte mean corpuscular hemoglobin (mass per erythrocyte) 31 pg 25-34 Automated erythrocyte mean corpuscular hemoglobin concentration measurement (mass/volume) 35 g/dL 32-36 Automated erythrocyte distribution width ratio 12.6 % 10.0- 14.5 Automated blood platelet count (count/volume) 232 10*3/uL 130-400 Automated blood platelet mean volume measurement 11.3 [foz_us] 7.4-10.4 Automated blood neutrophils/100 leukocytes 83 % 42-75 Automated blood lymphocytes/100 leukocytes 10 % 12-44 Blood monocytes/100 leukocytes 6 % 0-12 Automated blood eosinophils/100 leukocytes 1 % 0-10 Automated blood basophils/100 leukocytes 0 % 0-10 Blood neutrophils automated count (number/volume) 8.2 10*3 1.8-7.8 Blood lymphocytes automated count (number/volume) 1.0 10*3 1.0-4.0 Blood monocytes automated count (number/volume) 0.6 10*3 0.0- 1.0 Automated eosinophil count 0.1 10*3/uL 0.0-0.3 Automated blood basophil count (count/volume) 0.0 10*3/uL 0.0-0.1 Complete blood count (CBC) with automated white blood cell (WBC) differential - 04/19/19 13:00 Blood leukocytes automated count (number/volume) 5.8 10*3/uL 4.3-11.0 Blood erythrocytes automated count (number/volume) 5.03 10*6/uL 4.35-5.85 Venous blood hemoglobin measurement (mass/volume) 15.8 g/dL 11.5-16.0 Blood hematocrit (volume fraction) 45 % 35-52 Automated erythrocyte mean corpuscular volume 89 [foz_us] 80-99 Automated erythrocyte mean corpuscular hemoglobin (mass per erythrocyte) 31 pg 25-34 Automated erythrocyte mean corpuscular hemoglobin concentration measurement (mass/volume) 35 g/dL 32-36 Automated erythrocyte distribution width ratio 13.1 % 10.0- 14.5 Automated blood platelet count (count/volume) 219 10*3/uL 130-400 Automated blood platelet mean volume measurement 11.5 [foz_us] 7.4-10.4 Automated blood neutrophils/100 leukocytes 67 % 42-75 Automated blood lymphocytes/100 leukocytes 23 % 12-44 Blood monocytes/100 leukocytes 7 % 0-12 Automated blood eosinophils/100 leukocytes 2 % 0-10 Automated blood basophils/100 leukocytes 0 % 0-10 Blood neutrophils automated count (number/volume) 3.9 10*3 1.8-7.8 Blood lymphocytes automated count (number/volume) 1.3 10*3 1.0-4.0 Blood monocytes automated count (number/volume) 0.4 10*3 0.0- 1.0 Automated eosinophil count 0.1 10*3/uL 0.0-0.3 Automated blood basophil count (count/volume) 0.0 10*3/uL 0.0-0.1 Encounters ACCT No. Visit Date/Time Discharge Status Pt. Type Provider Facility Loc./Unit Complaint [id number] 04/12/2019 08:59:42 04/12/2019 23:59:59 CLS Outpatient Dottie Sanchez [id number] 02/26/2019 09:55:29 02/26/2019 23:59:59 CLS Outpatient Stephanie Hardin [id number] 01/18/2019 13:43:56 01/18/2019 23:59:59 CLS Outpatient Sandra Brown [id number] 01/18/2019 13:28:47 01/18/2019 23:59:59 CLS Outpatient Sandra Brown [id number] 11/14/2018 14:43:30 11/14/2018 23:59:59 CLS Outpatient Andrésame Stephanie Veronika [id number] 10/23/2018 13:25:52 10/23/2018 23:59:59 CLS Outpatient Dottie Sanchez [id number] 07/30/2018 13:47:03 07/30/2018 23:59:59 CLS Outpatient Dottie Sanchez [id number] 05/03/2018 09:15:26 05/03/2018 23:59:59 CLS Outpatient Walker, Dottie [id number] 02/07/2018 17:18:11 02/07/2018 23:59:59 CLS Outpatient Walker, Dottie [id number] 11/09/2017 16:59:18 11/09/2017 23:59:59 CLS Outpatient Fransico Downey [id number] 08/15/2017 17:10:58 08/15/2017 23:59:59 CLS Outpatient Walker, Dottie [id number] 07/10/2017 10:59:01 07/10/2017 23:59:59 CLS Outpatient Stephanie Hardin [id number] 05/18/2017 17:13:58 05/18/2017 23:59:59 CLS Outpatient Walker, Dottie [id number] 02/24/2017 13:00:56 02/24/2017 23:59:59 CLS Outpatient Walker, Dottie [id number] 11/30/2016 12:19:39 11/30/2016 23:59:59 CLS Outpatient Walker, Dottie [id number] 08/31/2016 17:00:52 08/31/2016 23:59:59 CLS Outpatient Walker, Dottie [id number] 06/06/2016 12:18:03 06/06/2016 23:59:59 CLS Outpatient Walker, Dottie [id number] 01/14/2016 14:29:18 01/14/2016 23:59:59 CLS Outpatient Walker, Dottie [id number] 12/18/2015 09:22:46 12/18/2015 23:59:59 CLS Outpatient Walker, Dottie [id number] 10/02/2015 11:55:39 10/02/2015 23:59:59 CLS Outpatient Walker, Dottie [id number] 07/08/2015 12:02:16 07/08/2015 23:59:59 CLS Outpatient Walker, Dottie [id number] 06/22/2015 21:47:09 06/22/2015 23:59:59 CLS Outpatient Walker, Dottie [id number] 10/21/2014 15:55:02 10/21/2014 23:59:59 CLS Outpatient Fidel Rhonda Trinhle [id number] 07/28/2014 14:07:07 07/28/2014 23:59:59 CLS Outpatient Walker, Dottie [id number] 02/07/2014 11:42:55 02/07/2014 23:59:59 CLS Outpatient Dottie Sanchez [id number] 11/22/2013 12:28:52 11/22/2013 23:59:59 CLS Outpatient Dottie Sanchez [id number] 04/10/2019 05:33:00 04/10/2019 10:29:00 DIS Outpatient FLOWER PACE MD [facility] PREOP CIN2 [id number] 03/11/2019 09:41:00 03/11/2019 23:59:59 CLS Outpatient FLOWER PACE MD [facility] RAD ROUTINE [id number] 01/04/2018 09:55:00 01/04/2018 23:59:59 CLS Outpatient FLOWER PACE MD [facility] RAD ROUTINE SCREENING [id number] 09/24/2017 17:51:00 09/24/2017 20:10:00 DIS Emergency JOSE STARK MD [facility] ER POST COLONOSCOPY/BLEEDING [id number] 09/22/2017 07:46:00 09/22/2017 11:35:00 DIS Outpatient MARISABEL HUSTON MD [facility] ENDO SCREENING [id number] 09/15/2017 05:37:00 09/15/2017 11:24:00 DIS Outpatient MARISABEL HUSTON MD [facility] PREOP COLONOSCOPY [id number] 01/02/2017 09:27:00 01/02/2017 23:59:59 CLS Outpatient FLOWER PACE MD [facility] RAD SCREENING [id number] 11/26/2015 10:04:00 11/26/2015 23:59:59 CLS Outpatient FLOWER PACE MD [facility] RAD SCREENING [id number] 10/29/2014 10:08:00 10/29/2014 23:59:59 CLS Outpatient FLOWER PACE MD [facility] RAD SCREENING [id number] 10/22/2013 10:49:00 10/22/2013 23:59:59 CLS Outpatient FLOWER PACE MD [facility] RAD SCREENING [id number] 04/19/2019 12:00:00 DARRELL PACE MD, FLOWER Atkins [facility] CIN2 [id number] 10/18/2012 14:25:00 Document Registration
--- NOTE | 2019-04-19 22:00 | OPERATIVE REPORT ---
DATE OF SERVICE: 04/19/2019 PREOPERATIVE DIAGNOSIS: Cervical intraepithelial neoplasia 2. POSTOPERATIVE DIAGNOSES: Cervical intraepithelial neoplasia 2. OPERATIVE PROCEDURE: Loop electrosurgical excision procedure. OPERATIVE DESCRIPTION: With the patient in the supine position under satisfactory general anesthesia, she was repositioned in dorsal lithotomy position in the Nam stirrups and prepped and draped in the usual fashion for vaginal surgery. Weighted speculum was placed in the posterior fornix of vagina, cervix exposed and grasped anteriorly with single-tooth tenaculum. The cervix was then saturated with a dilute solution of acetic acid and after several minutes that solution was evacuated from the vagina. There were several acetowhite lesions encompassing the majority of the cervix. The LEEP procedure was performed using a 20 mm . The procedure was accomplished in 2 passes removing the inferior two-thirds of the cervix including the cervical os and then the upper one-third. The inferior portion was labeled at the 6 o'clock position and the superior portion was labeled at the 12 o'clock position. The defect was then treated with cautery to effect hemostasis. With hemostasis complete, Sponge and needle counts were correct. The tenaculum was removed. There was no bleeding from the puncture sites. The patient was now uneventfully awakened from her general anesthesia and transferred to the recovery room in stable condition with plans for discharge home. Job ID: [id number] DocumentID: [id number] Dictated Date: 04/19/2019 19:29:02 Sales And Marketing Coordinator Date: 04/19/2019 21:59:01 Dictated By: FLOWER PACE MD
== END 2019-04-19 18:05 | disposition home or self-care (01) ==
LOC: SDC 12:15
PROVIDERS: ATTEND Obstetrics & Gynecology
DX: N87.0 Mild cervical dysplasia (principal); N72 Inflammatory disease of cervix uteri
CPT/HCPCS: 36415; 84703; 85025; 87081

== ENCOUNTER → 2020-03-17 | Outpatient (CLI) | payer BC ==
--- NOTE | 2020-03-17 16:51 | Diagnostic Imaging Report ---
EXAMINATION: Digital mammogram bilateral screening with CAD. INDICATION: Screening. COMPARISON: This study is compared to the prior exams of 03/11/2019, 01/04/2018, and 01/02/2017. PERSONAL HISTORY: At this time, there are no current complaints. FINDINGS: The fibroglandular tissue in both breasts is heterogeneously dense. This does limit the sensitivity of this exam. On the craniocaudad view of the left breast deep in the mid lateral aspect of the breast, there is a small 4 mm asymmetric density. There is no corresponding abnormality identified with certainty on the MLO view but this density does seem to persist on the tomographic images. I would recommend that a compression view of this area be obtained in the CC projection as well as a true lateral view for further study. If this density persists, then ultrasound may be necessary as well. The right breast is unchanged. IMPRESSION: Additional mammographic views of the left breast would be recommended for further study. Ultrasound may also be necessary. ACR BI-RADS Category 0: Incomplete. (Needs additional imaging evaluation). Result letter will be mailed to the patient. Note: At least 10% of breast cancer is not imaged by mammography. Dictated by: Dictated on workstation # [id number]
== END ==
LOC: RAD 09:52
PROVIDERS: ATTEND Obstetrics & Gynecology
DX: Z12.31 Encounter for screening mammogram for malignant neoplasm of breast (principal); R92.8 Other abnormal and inconclusive findings on diagnostic imaging of breast
CPT/HCPCS: 77063; 77067

== ENCOUNTER → 2020-03-26 | Outpatient (CLI) | payer BC ==
--- NOTE | 2020-03-26 10:18 | Diagnostic Imaging Report ---
Indication: Left breast density. Patient presented for additional views. Correlation is made with recent screening study from 03/17/2020. Unilateral left 2-D and 3-D diagnostic mammography was performed including spot compression CC, rolled CC and conventional 90 degree lateral views. Additional views failed to demonstrate a discrete mass. Area of density in the posterior and outer left breast appears to disperse with additional views, and is most consistent with superimposed tissue. No mass or malignant appearing microcalcifications are seen. IMPRESSION: BI-RADS Category 1 Additional views failed to demonstrate a discrete mass. The patient may return to routine annual screening mammography. ACR BI-RADS Category 1: Negative. Result letter will be mailed to the patient. Note: At least 10% of breast cancer is not imaged by mammography. Dictated by: Dictated on workstation # [id number]
== END ==
LOC: RAD 09:09
PROVIDERS: ATTEND Obstetrics & Gynecology
DX: Z12.31 Encounter for screening mammogram for malignant neoplasm of breast (principal)

== ENCOUNTER → 2021-04-05 | Outpatient (CLI) | payer BC ==
--- NOTE | 2021-04-05 15:35 | Diagnostic Imaging Report ---
INDICATION: Routine screening. COMPARISON: 03/17/2020 and 03/11/2019. TECHNIQUE: 2D and 3D bilateral screening mammography was performed with CAD. FINDINGS: Both breasts are heterogeneously dense, limiting the sensitivity of mammography. The parenchymal pattern is stable. No mass or malignant appearing microcalcifications are seen. The axillae are unremarkable. IMPRESSION: No mammographic features suspicious for malignancy are identified. ACR BI-RADS Category 1: Negative. Result letter will be mailed to the patient. Note: At least 10% of breast cancer is not imaged by mammography. Dictated by: Dictated on workstation # [id number]
== END ==
LOC: RAD 14:22
PROVIDERS: ATTEND Obstetrics & Gynecology
DX: Z12.31 Encounter for screening mammogram for malignant neoplasm of breast (principal)
CPT/HCPCS: 77063; 77067

== ENCOUNTER → 2022-06-14 | Outpatient (CLI) | payer BC ==
[~2022-06-14] MED LIST changes: +CYCL10TA25; -CYCL10TA9
--- NOTE | 2022-06-14 17:56 | Diagnostic Imaging Report ---
Indication: Routine screening. Comparison is made with prior mammograms from 04/05/2021 and 03/17/2020. 2-D and 3-D bilateral screening mammography was performed with CAD. Both breasts are heterogeneously dense, limiting the sensitivity of mammography. No spiculated mass or malignant-appearing microcalcifications are identified. Axillae are unremarkable. IMPRESSION: BI-RADS Category 1 No mammographic features suspicious for malignancy are identified. ACR BI-RADS Category 1: Negative. Result letter will be mailed to the patient. Note: At least 10% of breast cancer is not imaged by mammography. Dictated by: Dictated on workstation # [id number]
== END ==
LOC: RAD 14:40
PROVIDERS: ATTEND Obstetrics & Gynecology
DX: Z12.31 Encounter for screening mammogram for malignant neoplasm of breast (principal)
CPT/HCPCS: 77063; 77067

== ENCOUNTER 2022-09-22 05:42 | Outpatient (CLI) | payer BC ==
[~2022-09-22] VITALS: Ht 172.7 cm; Wt 85.3 kg
[2022-09-22] MEDS ORDERED: MEDR2.5T PO (11:59)
[2022-09-22] MEDS ORDERED: ESTR1TAB27 PO (11:59)
== END 2022-09-22 12:02 | disposition home or self-care (01) ==
LOC: PREOP 05:42
PROVIDERS: ATTEND Internal Medicine
DX: Z01.818 Encounter for other preprocedural examination (principal)

== ENCOUNTER 2022-09-30 08:12 | Day surgery (SDC) | payer BC ==
--- NOTE | 2022-09-16 11:02 | HISTORY AND PHYSICAL ---
DATE OF SERVICE: 09/30/2022 COLONOSCOPY HISTORY AND PHYSICAL HISTORY OF PRESENT ILLNESS: The patient is a 52-year-old white female referred by Dr. Davis for surveillance colonoscopy. She had a grandfather on her mother's side, diagnosed with colon cancer in his 60s. She has a personal past history of colon polyps, having undergone colonoscopy in 09/2017. She reports no bright red blood per rectum. She did have hemorrhoidectomy in May but has been cleared by her surgeon for colonoscopy. She had no problems with the procedure. She has had no bleeding since. Denies change in bowel habit or change in weight. PAST MEDICAL HISTORY: Significant for hypertension with no known history of vascular disease. MEDICATIONS ON ADMISSION: Lisinopril 10 mg daily and she is on estradiol 1 mg daily and Provera 2.5 mg daily for menopausal symptoms. SOCIAL HISTORY: She is employed in the [employer] in [place]. She has no past smoking history and occasional small volume social alcohol intake. FAMILY HISTORY: As noted in the HPI. PAST SURGICAL HISTORY: Significant for two eye surgeries as outpatient and then hemorrhoidectomy in the summer, reporting it was an internal hemorrhoid. REVIEW OF SYSTEMS: CONSTITUTIONAL: Denies night sweats, chills, fever or change in weight. GASTROINTESTINAL: As noted in the HPI. PULMONARY: Denies cough, wheezing or shortness of breath. CARDIOVASCULAR: Denies orthopnea, PND, pedal edema, syncope or chest discomfort. PHYSICAL EXAMINATION: GENERAL: Reveals a pleasant white female, appears to be in no acute distress. VITAL SIGNS: Weight 188.6 pounds, blood pressure 110/80. HEENT: Unremarkable. Sclerae nonicteric. CHEST: Clear to auscultation. CARDIOVASCULAR: Reveals a regular rate and rhythm without murmur, S3 or S4. ABDOMEN: Soft, supple without mass, organomegaly or tenderness. EXTREMITIES: Reveal no cyanosis, clubbing or edema. ASSESSMENT AND PLAN: The patient is being set up for surveillance colonoscopy due to family history for colon cancer and past history of colon polyps. Prep instructions with Sutab was given and questions were answered. It should note that the patient did go to the emergency room several days after her last colonoscopy for bleeding. She was not anemic. If polyps are removed, we need to readdress the importance of avoiding aspirin and nonsteroidal medication. DocumentID: [id number] Dictated Date: 09/16/2022 00:00:00 Research Animal Attendant Date: 09/16/2022 01:09:00 Dictated By: MARISABEL HUSTON MD
[~2022-09-30] VITALS: Ht 173 cm; Wt 85.3 kg
[~2022-09-30 08:12] MED LIST changes: +ESTR1TAB27 PO; +MEDR2.5T PO
[2022-09-30] MEDS ORDERED: LACTATED RINGERS 1,000 ML IV STA (08:13)
[2022-09-30 08:40] VITALS: BP 138/101
--- NOTE | 2022-09-30 08:55 | Pre-Op Note & Conscious Sedat ---
Pre-Operative Progress Note Date H&P Reviewed: Sep 30, 2022 Time H&P Reviewed: 08:54 Pre-Op Diagnosis: screening FH of colon cancer Conscious Sedation Pre-Proced ASA Score 2 For ASA 3 and 4: Consider anesthesia and medical clearance. Also, for patients with a history of failed moderate sedation consider anesthesia. Airway Lungs Heart ASA score ASA 1: a normal healthy patient ASA 2: a patient with a mild systemic disease (mid diabetes, controlled hypertension, obesity ASA 3: a patient with a severe systemic disease that limits activity (angina, COPD, prior Myocardial infarction) ASA 4: a patient with an incapacitating disease that is a constant threat to life (CHF, renal failure) ASA 5: a moribund patient not expected to survive 24 hrs. (ruptured aneurysm) ASA 6: a declared brain- patient whose organs are being harvested. For emergent operations, add the letter E after the classification Mallampati Classification Grade 1 Sedation Plan Analgesia, Amnesia, Plan communicated to team members, Discussed options with patient/fam, Discussed risks with patient/fam The patient is an appropriate candidate to undergo the planned procedure, sedation, and anesthesia. The patient immediately re-assessed prior to indication. MARISABEL HUSTON MD Sep 30, 2022 08:55
[2022-09-30] MEDS ORDERED: ONDANSETRON 4 MG/2 ML (SDV) Z0FRAN IVP ONE (09:00)
[2022-09-30] MEDS ORDERED: PROPOFOL INJECTION 50 ML IV ONE (09:30)
[2022-09-30 10:11] VITALS: BP 129/67
--- NOTE | 2022-09-30 10:11 | Progress Note-Post Operative ---
Post-Procedure Note Physician (s)/Restaurant Delivery Driver (s) Physician MARISABEL HUSTON MD Pre-Procedure Diagnosis Pre-Procedure Diagnosis: screening FH of colon cancer Post-Procedure Diagnosis Post-operative diagnosis: Prior to undergoing colonoscopy digital rectal evaluation was performed. Anal central tone was normal and the perianal reflexes intact. No abnormalities are noted on digital inspection of the anal canal or distal rectal vault. The colonoscope was then inserted into the rectum and under direct visualization advanced to the cecum. The cecum was identified by the ileocecal valve and the cecal strap. Photographic documentation was obtained. A careful inspection was made as the colonoscope was withdrawn. Quality the prep was good. Findings: There was no evidence for internal or external hemorrhoids. The rectum sigmoid colon descending colon splenic flexure transverse colon hepatic flexure ascending colon and cecum were unremarkable. Assessment normal colonoscopy to the cecum. Considering family history would advocate repeat screening colonoscopy at the age of 58. CC: JEREMY Castañeda MARK D MD Sep 30, 2022 10:11
[2022-09-30] MEDS ORDERED: LACTATED RINGERS 1,000 ML IV ONE (10:28)
[2022-09-30] MEDS ORDERED: diphenhydrAMINE 50 MG/ML INJ (BENADRYL) IVP ONE (10:30)
[2022-09-30] MEDS ORDERED: FAMOTIDINE 20MG/2ML IV (PEPCID) IVP ONE (10:30)
[2022-09-30 10:45] VITALS: BP 142/77
[2022-09-30 11:06] VITALS: BP 141/94
--- NOTE | 2022-09-30 12:40 | Anesthesia-General Post-Op ---
MAC Patient Condition Mental Status/LOC: Same as Preop Cardiovascular: Satisfactory Nausea/Vomiting: Absent Respiratory: Satisfactory Pain: Controlled Complications: Absent Post Op Complications Complications None Follow Up Care/Instructions Patient Instructions None needed. Anesthesiology Discharge Order Discharge Order Patient is doing well, no complaints, stable vital signs, no apparent adverse anesthesia problems. No complications reported per nursing. GERRI YBARRA CRNA Sep 30, 2022 12:40
== END 2022-09-30 11:22 | disposition home or self-care (01) ==
LOC: ENDO 08:12
PROVIDERS: ATTEND Internal Medicine
DX: Z12.11 Encounter for screening for malignant neoplasm of colon (principal); Z80.0 Family history of malignant neoplasm of digestive organs; Z28.310 Unvaccinated for COVID-19

== ENCOUNTER → 2023-07-12 | Outpatient (CLI) | payer BC ==
--- NOTE | 2023-07-12 17:44 | Diagnostic Imaging Report ---
INDICATION: Routine screening. Comparison is made with prior mammogram from 06/14/2022 and 04/05/2021. 2-D and 3-D bilateral screening mammography was performed with CAD. Scattered fibroglandular densities are identified bilaterally. The parenchymal pattern is stable. There is no mass or malignant-appearing microcalcifications. Axillae are unremarkable. IMPRESSION: No mammographic features suspicious for malignancy are identified. ACR BI-RADS Category 1: Negative. Result letter will be mailed to the patient. Note: At least 10% of breast cancer is not imaged by mammography. BI-RADS Category 1 Dictated by: Dictated on workstation # [id number]
== END ==
LOC: RAD 09:15
PROVIDERS: ATTEND Obstetrics & Gynecology
DX: Z12.31 Encounter for screening mammogram for malignant neoplasm of breast (principal)
CPT/HCPCS: 77063; 77067